=== PATIENT | male | born 1960 | race Caucasian/White ===

== ENCOUNTER 2019-09-17 20:31 | Inpatient (IN) | payer MEDICAID, BC ==
[2019-09-17 21:38] VITALS: BP 122/69
[2019-09-17] MEDS ORDERED: Maalox 30 mL Cup PO PRN (21:38)
[2019-09-17] MEDS ORDERED: Magnesium Hydroxide (MOM) 30 mL UDC PO PRN (21:38)
[2019-09-18] MEDS: Levothyroxine 0.05 Mg Tab PO SCH (07:00)
[2019-09-18] MEDS ORDERED: OLANZapine 5 mg Oral Disintegrating Tab PO SCH (09:00)
[2019-09-18] MEDS: Ferrous Sulfate 325 MG TAB PO SCH (09:07)
--- NOTE | 2019-09-18 12:52 | Psychiatric Evaluation ---
DATE OF SERVICE: 09/18/2019 JUSTIFICATION FOR HOSPITALIZATION: "I can tell you ____ violence." HISTORY OF PRESENT ILLNESS: A 59-year-old male, bizarre, history of likely schizophrenia, intrusive, asking what school I went to, stating that he feels that I, the clinician, ____ violence for some reason, yelling, screaming, does not tell me why he is here, "why do not you just call people and find out why I am here." Agitated, aggressive, starts to escalate, preoccupied, mumbling to self. PAST PSYCHIATRIC HISTORY: Likely hospitalizations, likely schizophrenia. The patient guarded. FAMILY HISTORY: Noncontributory. SOCIAL HISTORY: Born in [place], not , states that he was supposed to have a child, but "she got an ." MEDICATIONS: Reviewed. MENTAL STATUS EXAMINATION: Disheveled, unkempt, poor dentition, loud, aggressive, agitated, talking nonsense, disengaged, mumbling to self. Poor impulse control. Poor insight. DIAGNOSIS: Schizophrenia. MEDICAL: Please see full H and P. ASSESSMENT: A 59-year-old male, currently in the hospital, agitated, aggressive, psychotic appearing. TREATMENT PLAN: Includes group as well as milieu therapy. CONDITIONS FOR DISCHARGE: Improved mood. Improved insight, better control of any aggressive behaviors, violence, homicidal ideations, better control of his psychosis. JOB# [id number]
[2019-09-18] MEDS: Benztropine 1 MG TAB PO SCH (17:06)
[2019-09-18] MEDS: OLANZapine 5 mg Oral Disintegrating Tab PO SCH (17:07)
--- NOTE | 2019-09-18 17:56 | Consultation ---
DATE OF CONSULTATION: 09/18/19 INTERNAL MEDICINE CONSULTATION I am seeing this patient through request of a psychiatrist. HISTORY OF PRESENT ILLNESS: We have a 59-year-old male who was transferred from long term for further treatment and evaluation of agitation and psychosis. No nausea, vomiting, abdominal pain, diarrhea. PAST MEDICAL HISTORY: 1. Hypertension. 2. Schizoaffective disorder. 3. Alcohol liver disease. 4. Dementia. 5. Benign prostatic hypertrophy. At this time, the patient denies any chest pain, shortness of breath, nausea or vomiting. Past medical history is as mentioned above. SURGICAL HISTORY: None. MEDICATIONS: Reviewed. ALLERGIES: None. SOCIAL HISTORY: No tobacco, IV drugs, ETOH negative. PHYSICAL EXAMINATION: VITAL SIGNS: Temperature is 98.0, pulse 79, respirations 20, blood pressure is 126/80. HEENT: Normocephalic, atraumatic head exam. NECK: Supple. CARDIOVASCULAR: Regular rate and rhythm. LUNGS: Decreased breath sounds. ABDOMEN: Soft, nontender. EXTREMITIES: No edema, cyanosis or clubbing. ASSESSMENT AND PLAN: 1. Diabetes. 2. Hypertension. 3. Schizoaffective disorder. PLAN: The patient will be monitored carefully. We will co-manage medically for the diabetes and blood pressure with the psychiatrist. JOB# [id number] KIRIT
[2019-09-18] MEDS: Atorvastatin Calcium 10 MG TAB PO SCH (20:31)
[2019-09-19] MEDS: Levothyroxine 0.05 Mg Tab PO SCH (06:32)
[2019-09-19] MEDS: Benztropine 1 MG TAB PO SCH ×2 (09:15→16:54)
[2019-09-19] MEDS: Ferrous Sulfate 325 MG TAB PO SCH (09:16)
[2019-09-19] MEDS: OLANZapine 5 mg Oral Disintegrating Tab PO SCH ×2 (09:16→16:54)
[2019-09-19] MEDS ORDERED: GLUCAGON HCl 1 MG KIT IM PRN (11:34)
--- NOTE | 2019-09-19 14:29 | Internal Medicine Prog Note ---
Internal Medicine Subjective - Subjective Service Date: 09/19/19 Patient seen and examined:: without staff Patient is:: awake Per staff patient has:: no adverse event, no episodes of fall Internal Medicine Objective - Results Recent Labs: Laboratory Last Values POC Glucose 99 MG/DL (70 - 105) 09/19/19 11:32 - Physical Exam Vitals and I&O: Vital Signs Temp 97.8 F 09/19/19 06:40 Pulse 65 09/19/19 06:40 Resp 20 09/19/19 08:00 BP 116/62 09/19/19 09:14 Pulse Ox 99 09/19/19 06:40 Intake & Output 09/18/19 09/19/19 09/19/19 18:59 06:59 18:59 Intake Total 1320 120 Balance 1320 120 Intake: Oral 960 120 Other 360 Other: # Voids 3 3 # Bowel Movements 0 0 Stool Characteristics Formed Brown Active Medications: Current Medications Acetaminophen (Tylenol) 650 mg PO Q4H PRN PRN Reason: Pain (Mild 1-3) Stop: 11/16/19 22:16 Acetaminophen (Tylenol) 650 mg PO Q4H PRN PRN Reason: Temperature 100F or above Stop: 11/16/19 22:21 Al Hydrox/Mg Hydrox/Simethicone (Maalox) 30 ml PO Q4HR PRN PRN Reason: GI DISTRESS Stop: 11/16/19 21:37 Atorvastatin Calcium (Lipitor) 10 mg PO HS [facility]; Protocol Stop: 11/17/19 20:59 Last Admin: 09/18/19 20:31 Dose: 10 mg Benztropine Mesylate (Cogentin) 2 mg PO BID [facility] Stop: 11/17/19 16:59 Last Admin: 09/19/19 09:15 Dose: 2 mg Citalopram Hydrobromide (Celexa) 40 mg PO DAILY [facility]; Protocol Stop: 11/17/19 11:59 Last Admin: 09/19/19 09:13 Dose: 40 mg Clonazepam (Klonopin) 1 mg PO BID [facility]; Protocol Stop: 11/17/19 11:59 Last Admin: 09/19/19 09:16 Dose: 1 mg Dextrose (Glutose 40%) 18.75 gm PO PRN PRN PRN Reason: BS Below 70 if tolerate po Stop: 11/18/19 11:33 Ferrous Sulfate (Iron) 325 mg PO DAILY [facility] Stop: 11/17/19 08:59 Last Admin: 09/19/19 09:16 Dose: 325 mg Gabapentin (Neurontin) 200 mg PO TID [facility] Stop: 11/17/19 08:59 Last Admin: 09/19/19 14:07 Dose: 200 mg Glucagon (Glucagen) 1 mg IM PRN PRN PRN Reason: BS Below 70 if not tolerate po Stop: 11/18/19 11:33 Hydrochlorothiazide (Hctz) 12.5 mg PO DAILY [facility] Stop: 11/17/19 08:59 Last Admin: 09/19/19 09:14 Dose: 12.5 mg Insulin Human Lispro (Humalog Insulin Sliding Scale) 0 units SUBQ BID@0630, 1630 [facility]; Protocol Stop: 11/18/19 16:29 Levothyroxine Sodium (Synthroid) 0.05 mg PO QDAC [facility] Stop: 11/17/19 07:29 Last Admin: 09/19/19 06:32 Dose: 0.05 mg Lorazepam (Ativan) 0.5 mg PO Q4HR PRN; Protocol PRN Reason: Anxiety Stop: 10/17/19 21:37 Losartan Potassium (Cozaar) 50 mg PO HS [facility] Stop: 11/17/19 20:59 Last Admin: 09/18/19 20:31 Dose: 50 mg Magnesium Hydroxide (Milk Of Magnesia) 30 ml PO HS PRN PRN Reason: Constipation Olanzapine (Zyprexa Zydis) 5 mg PO BID [facility]; Protocol Stop: 11/17/19 16:59 Last Admin: 09/19/19 09:16 Dose: 5 mg Olanzapine (Zyprexa) 10 mg PO HS [facility]; Protocol Stop: 11/18/19 20:59 Oxybutynin Chloride (Ditropan) 5 mg PO BID [facility] Stop: 11/17/19 08:59 Last Admin: 09/19/19 09:15 Dose: 5 mg Tamsulosin HCl (Flomax) 0.4 mg PO HS [facility] Stop: 11/17/19 20:59 Last Admin: 09/18/19 20:31 Dose: 0.4 mg Valproate Sodium (Depakene) 250 mg PO BID [facility]; Protocol Stop: 11/17/19 11:59 Last Admin: 09/19/19 09:13 Dose: 250 mg Zolpidem Tartrate (Ambien) 5 mg PO HS PRN PRN Reason: Insomnia Stop: 11/16/19 21:37 Last Admin: 09/18/19 20:31 Dose: 5 mg HEENT: NC/AT Neck: Supple, No JVD Lungs: CTAB Cardiovascular: RRR, Normal S1, Normal S2 Abdomen: soft, non-tender Extremities: clear Internal Medicine Assmt/Plan - Assessment Assessment: 1. DM/HTN 2. Schizoaffecive disorder - Plan Plan: continue bp meds continue sliding scale for insulin d/w r.n.
[2019-09-19] MEDS: INSULIN LISPRO SLIDING SCALE 100 UNITS/ML UNIT SUBQ SCH (17:00)
--- NOTE | 2019-09-19 19:19 | Progress Notes ---
DATE: 09/19/2019 SUBJECTIVE: A 59-year-old male, currently in the hospital, still bizarre, intrusive, still making statements, "I can tell that you are in for violence," loud, waving a diaper around. Poor orientation, responding to internal stimuli. I spent some time with him, but he escalates, gets loud, still appears psychotic, hyperverbal, aggressive at times. Medications reviewed. Labs reviewed. Vitals were reviewed, currently on dosing of Celexa, Klonopin, and also dosing of Zyprexa, recent increase; blood pressure 127/59, pulse of 67. No overt side effects, no EPS. MENTAL STATUS: Disheveled, unkempt, fair eye contact, loud, intrusive, still making some bizarre comments, responding to internal stimuli. DIAGNOSIS: Schizophrenia. PLAN: We will continue inpatient monitoring. Time spent with the patient trying to assess given how destructive he is, psychotic, disorganized. We will continue dosing of his Zyprexa. JOB# [id number]
[2019-09-19] MEDS: Atorvastatin Calcium 10 MG TAB PO SCH (20:39)
[2019-09-20] MEDS: INSULIN LISPRO SLIDING SCALE 100 UNITS/ML UNIT SUBQ SCH ×2 (06:52→16:49)
[2019-09-20] MEDS: Levothyroxine 0.05 Mg Tab PO SCH (06:53)
[2019-09-20] MEDS: Ferrous Sulfate 325 MG TAB PO SCH (08:47)
[2019-09-20] MEDS: Benztropine 1 MG TAB PO SCH ×2 (08:47→17:07)
[2019-09-20] MEDS: OLANZapine 5 mg Oral Disintegrating Tab PO SCH ×2 (08:48→17:06)
--- NOTE | 2019-09-20 14:31 | Internal Medicine Prog Note ---
Internal Medicine Subjective - Subjective Service Date: 09/20/19 Patient is:: awake Per staff patient has:: no adverse event, no episodes of fall Internal Medicine Objective - Results Recent Labs: Laboratory Last Values POC Glucose 73 MG/DL (70 - 105) 09/20/19 06:27 - Physical Exam Vitals and I&O: Vital Signs Temp 98.2 F 09/20/19 06:27 Pulse 78 09/20/19 06:27 Resp 20 09/20/19 06:27 BP 102/59 09/20/19 08:48 Pulse Ox 96 09/20/19 06:27 Intake & Output 09/19/19 09/20/19 09/20/19 18:59 06:59 18:59 Intake Total 1200 120 Balance 1200 120 Intake: Oral 1200 120 Other: # Voids 3 1 # Bowel Movements 0 0 Stool Characteristics Formed Brown Active Medications: Current Medications Acetaminophen (Tylenol) 650 mg PO Q4H PRN PRN Reason: Pain (Mild 1-3) Stop: 11/16/19 22:16 Acetaminophen (Tylenol) 650 mg PO Q4H PRN PRN Reason: Temperature 100F or above Stop: 11/16/19 22:21 Al Hydrox/Mg Hydrox/Simethicone (Maalox) 30 ml PO Q4HR PRN PRN Reason: GI DISTRESS Stop: 11/16/19 21:37 Atorvastatin Calcium (Lipitor) 10 mg PO HS [facility]; Protocol Stop: 11/17/19 20:59 Last Admin: 09/19/19 20:39 Dose: 10 mg Benztropine Mesylate (Cogentin) 2 mg PO BID [facility] Stop: 11/17/19 16:59 Last Admin: 09/20/19 08:47 Dose: 2 mg Citalopram Hydrobromide (Celexa) 40 mg PO DAILY [facility]; Protocol Stop: 11/17/19 11:59 Last Admin: 09/20/19 08:47 Dose: 40 mg Clonazepam (Klonopin) 1 mg PO BID [facility]; Protocol Stop: 11/17/19 11:59 Last Admin: 09/20/19 08:47 Dose: 1 mg Dextrose (Glutose 40%) 18.75 gm PO PRN PRN PRN Reason: BS Below 70 if tolerate po Stop: 11/18/19 11:33 Ferrous Sulfate (Iron) 325 mg PO DAILY [facility] Stop: 11/17/19 08:59 Last Admin: 09/20/19 08:47 Dose: 325 mg Gabapentin (Neurontin) 200 mg PO TID [facility] Stop: 11/17/19 08:59 Last Admin: 09/20/19 14:05 Dose: Not Given Glucagon (Glucagen) 1 mg IM PRN PRN PRN Reason: BS Below 70 if not tolerate po Stop: 11/18/19 11:33 Hydrochlorothiazide (Hctz) 12.5 mg PO DAILY [facility] Stop: 11/17/19 08:59 Last Admin: 09/20/19 08:48 Dose: Not Given Insulin Human Lispro (Humalog Insulin Sliding Scale) 0 units SUBQ BID@0630, 1630 [facility]; Protocol Stop: 11/18/19 16:29 Last Admin: 09/20/19 06:52 Dose: Not Given Levothyroxine Sodium (Synthroid) 0.05 mg PO QDAC [facility] Stop: 11/17/19 07:29 Last Admin: 09/20/19 06:53 Dose: 0.05 mg Lorazepam (Ativan) 0.5 mg PO Q4HR PRN; Protocol PRN Reason: Anxiety Stop: 10/17/19 21:37 Last Admin: 09/19/19 20:42 Dose: 0.5 mg Losartan Potassium (Cozaar) 50 mg PO HS [facility] Stop: 11/17/19 20:59 Last Admin: 09/19/19 20:40 Dose: 50 mg Magnesium Hydroxide (Milk Of Magnesia) 30 ml PO HS PRN PRN Reason: Constipation Olanzapine (Zyprexa Zydis) 5 mg PO BID [facility]; Protocol Stop: 11/17/19 16:59 Last Admin: 09/20/19 08:48 Dose: 5 mg Olanzapine (Zyprexa) 10 mg PO HS [facility]; Protocol Stop: 11/18/19 20:59 Last Admin: 09/19/19 20:41 Dose: 10 mg Oxybutynin Chloride (Ditropan) 5 mg PO BID [facility] Stop: 11/17/19 08:59 Last Admin: 09/20/19 08:48 Dose: 5 mg Tamsulosin HCl (Flomax) 0.4 mg PO HS [facility] Stop: 11/17/19 20:59 Last Admin: 09/19/19 20:42 Dose: 0.4 mg Valproate Sodium (Depakene) 250 mg PO BID [facility]; Protocol Stop: 11/17/19 11:59 Last Admin: 09/20/19 08:48 Dose: 250 mg Zolpidem Tartrate (Ambien) 5 mg PO HS PRN PRN Reason: Insomnia Stop: 11/16/19 21:37 Last Admin: 09/19/19 20:42 Dose: 5 mg HEENT: NC/AT Neck: Supple, No JVD Lungs: CTAB Cardiovascular: RRR, Normal S1, Normal S2 Abdomen: soft, non-tender Extremities: clear Internal Medicine Assmt/Plan - Assessment Assessment: 1. DM/HTN 2. Schizoaffecive disorder - Plan Plan: continue bp meds continue sliding scale for insulin d/w r.n.
[2019-09-20] MEDS: Atorvastatin Calcium 10 MG TAB PO SCH (21:16)
[2019-09-21] MEDS: INSULIN LISPRO SLIDING SCALE 100 UNITS/ML UNIT SUBQ SCH ×2 (06:32→17:43)
[2019-09-21] MEDS: Levothyroxine 0.05 Mg Tab PO SCH (06:33)
[2019-09-21] MEDS: OLANZapine 5 mg Oral Disintegrating Tab PO SCH ×2 (08:56→17:32)
[2019-09-21] MEDS: Ferrous Sulfate 325 MG TAB PO SCH (08:57)
[2019-09-21] MEDS: Benztropine 1 MG TAB PO SCH ×2 (08:57→17:31)
--- NOTE | 2019-09-21 11:58 | Internal Medicine Prog Note ---
Internal Medicine Subjective - Subjective Service Date: 09/21/19 Patient is:: awake, verbal, interactive, ambulating Per staff patient has:: no adverse event, no episodes of fall Internal Medicine Objective - Results Recent Labs: Laboratory Last Values POC Glucose 71 MG/DL (70 - 105) 09/21/19 05:59 - Physical Exam Vitals and I&O: Vital Signs Temp 97.7 F 09/20/19 20:00 Pulse 79 09/21/19 09:19 Resp 18 09/21/19 09:19 BP 107/63 09/21/19 09:19 Pulse Ox 97 09/21/19 09:19 Intake & Output 09/20/19 09/21/19 09/21/19 18:59 06:59 18:59 Intake Total 800 120 Balance 800 120 Intake: Oral 800 120 Other: # Voids 3 3 # Bowel Movements 1 Stool Characteristics Formed Formed Brown Brown Active Medications: Current Medications Acetaminophen (Tylenol) 650 mg PO Q4H PRN PRN Reason: Pain (Mild 1-3) Stop: 11/16/19 22:16 Acetaminophen (Tylenol) 650 mg PO Q4H PRN PRN Reason: Temperature 100F or above Stop: 11/16/19 22:21 Al Hydrox/Mg Hydrox/Simethicone (Maalox) 30 ml PO Q4HR PRN PRN Reason: GI DISTRESS Stop: 11/16/19 21:37 Atorvastatin Calcium (Lipitor) 10 mg PO HS [facility]; Protocol Stop: 11/17/19 20:59 Last Admin: 09/20/19 21:16 Dose: 10 mg Benztropine Mesylate (Cogentin) 2 mg PO BID [facility] Stop: 11/17/19 16:59 Last Admin: 09/21/19 08:57 Dose: 2 mg Citalopram Hydrobromide (Celexa) 40 mg PO DAILY [facility]; Protocol Stop: 11/17/19 11:59 Last Admin: 09/21/19 08:54 Dose: 40 mg Clonazepam (Klonopin) 1 mg PO BID [facility]; Protocol Stop: 11/17/19 11:59 Last Admin: 09/21/19 08:56 Dose: 1 mg Dextrose (Glutose 40%) 18.75 gm PO PRN PRN PRN Reason: BS Below 70 if tolerate po Stop: 11/18/19 11:33 Ferrous Sulfate (Iron) 325 mg PO DAILY [facility] Stop: 11/17/19 08:59 Last Admin: 09/21/19 08:57 Dose: 325 mg Gabapentin (Neurontin) 200 mg PO TID [facility] Stop: 11/17/19 08:59 Last Admin: 09/21/19 08:56 Dose: 200 mg Glucagon (Glucagen) 1 mg IM PRN PRN PRN Reason: BS Below 70 if not tolerate po Stop: 11/18/19 11:33 Hydrochlorothiazide (Hctz) 12.5 mg PO DAILY [facility] Stop: 11/17/19 08:59 Last Admin: 09/21/19 09:18 Dose: Not Given Insulin Human Lispro (Humalog Insulin Sliding Scale) 0 units SUBQ BID@0630, 1630 [facility]; Protocol Stop: 11/18/19 16:29 Last Admin: 09/21/19 06:32 Dose: Not Given Levothyroxine Sodium (Synthroid) 0.05 mg PO QDAC [facility] Stop: 11/17/19 07:29 Last Admin: 09/21/19 06:33 Dose: 0.05 mg Lorazepam (Ativan) 0.5 mg PO Q4HR PRN; Protocol PRN Reason: Anxiety Stop: 10/17/19 21:37 Last Admin: 09/19/19 20:42 Dose: 0.5 mg Losartan Potassium (Cozaar) 50 mg PO HS [facility] Stop: 11/17/19 20:59 Last Admin: 09/20/19 21:18 Dose: Not Given Magnesium Hydroxide (Milk Of Magnesia) 30 ml PO HS PRN PRN Reason: Constipation Olanzapine (Zyprexa Zydis) 5 mg PO BID [facility]; Protocol Stop: 11/17/19 16:59 Last Admin: 09/21/19 08:56 Dose: 5 mg Olanzapine (Zyprexa) 10 mg PO HS [facility]; Protocol Stop: 11/18/19 20:59 Last Admin: 09/20/19 21:17 Dose: 10 mg Oxybutynin Chloride (Ditropan) 5 mg PO BID [facility] Stop: 11/17/19 08:59 Last Admin: 09/21/19 08:55 Dose: 5 mg Tamsulosin HCl (Flomax) 0.4 mg PO HS [facility] Stop: 11/17/19 20:59 Last Admin: 09/20/19 21:17 Dose: 0.4 mg Valproate Sodium (Depakene) 250 mg PO BID [facility]; Protocol Stop: 11/17/19 11:59 Last Admin: 09/21/19 08:58 Dose: 250 mg Zolpidem Tartrate (Ambien) 5 mg PO HS PRN PRN Reason: Insomnia Stop: 11/16/19 21:37 Last Admin: 09/20/19 21:20 Dose: 5 mg HEENT: NC/AT Neck: Supple, No JVD Lungs: CTAB Cardiovascular: RRR, Normal S1, Normal S2 Abdomen: soft, non-tender Extremities: clear Neurological: no change Internal Medicine Assmt/Plan - Assessment Assessment: 1. DM/HTN 2. Schizoaffecive disorder - Plan Plan: continue bp meds continue sliding scale for insulin d/w r.n.
[2019-09-21] MEDS: Atorvastatin Calcium 10 MG TAB PO SCH (20:51)
[2019-09-22] MEDS: INSULIN LISPRO SLIDING SCALE 100 UNITS/ML UNIT SUBQ SCH ×2 (06:48→16:31)
[2019-09-22] MEDS: Levothyroxine 0.05 Mg Tab PO SCH (06:50)
[2019-09-22] MEDS: OLANZapine 5 mg Oral Disintegrating Tab PO SCH ×2 (09:30→16:51)
[2019-09-22] MEDS: Ferrous Sulfate 325 MG TAB PO SCH (09:32)
[2019-09-22] MEDS: Benztropine 1 MG TAB PO SCH ×2 (09:32→16:59)
[2019-09-22] MEDS: Atorvastatin Calcium 10 MG TAB PO SCH (20:50)
--- NOTE | 2019-09-22 21:03 | Psych Progress Note ---
Psych Progress Note - Intro Date of Progress Note: 09/22/19 - Assessment Assessment: Patient interviewed, case discussed with staff, chart and records were reviewed. The patient is quite irritable with the interview. He is actively responding to internal stimuli. He is uncooperative otherwise with the interview. Per nursing staff reports the patient is isolating to his room easily angered does not want to interact with others. Tolerating medications well no side effects noted. No plan for self-care at this time. - Vitals, I&O Vitals: Vital Signs - 24 hr 09/21/19 09/22/19 09/22/19 21:38 06:39 08:00 Temp 97.3 F HR 80 62 RR 20 20 BP 94/64 117/70 O2 Sat % 97 09/22/19 09/22/19 09/22/19 14:00 20:03 20:51 Temp 96.8 F 97.8 F HR 71 74 74 RR 20 20 BP 103/58 140/74 140/74 O2 Sat % 98 97 - Objective Psych General Appearance: Report: No acute distress Psych Behavior: Report: Alert, Uncooperative Psych Speech: Report: Mumbled Psych Mood: Report: Angry Psych Affect: Report: Constricted Psych Thought Process: Report: Auditory Psych Insight: Report: Impaired Psych Judgement: Report: Impaired - Plan Plan: Continue current treatment plan, continue current medications, continue to monitor behaviors. - Review of Relevant Data Review of Relevant Data: I have reviewed the following items and time felisa (where applicable) has been applied. Psych Data Reviewed: Vitals - Medications Current Medications: Current Medications Acetaminophen (Tylenol) 650 mg PO Q4H PRN PRN Reason: Pain (Mild 1-3) Stop: 11/16/19 22:16 Acetaminophen (Tylenol) 650 mg PO Q4H PRN PRN Reason: Temperature 100F or above Stop: 11/16/19 22:21 Al Hydrox/Mg Hydrox/Simethicone (Maalox) 30 ml PO Q4HR PRN PRN Reason: GI DISTRESS Stop: 11/16/19 21:37 Atorvastatin Calcium (Lipitor) 10 mg PO HS [facility]; Protocol Stop: 11/17/19 20:59 Last Admin: 09/22/19 20:50 Dose: 10 mg Benztropine Mesylate (Cogentin) 2 mg PO BID [facility] Stop: 11/17/19 16:59 Last Admin: 09/22/19 16:59 Dose: 2 mg Citalopram Hydrobromide (Celexa) 40 mg PO DAILY [facility]; Protocol Stop: 11/17/19 11:59 Last Admin: 09/22/19 09:32 Dose: 40 mg Clonazepam (Klonopin) 1 mg PO BID [facility]; Protocol Stop: 11/17/19 11:59 Last Admin: 09/22/19 16:50 Dose: 1 mg Dextrose (Glutose 40%) 18.75 gm PO PRN PRN PRN Reason: BS Below 70 if tolerate po Stop: 11/18/19 11:33 Ferrous Sulfate (Iron) 325 mg PO DAILY [facility] Stop: 11/17/19 08:59 Last Admin: 09/22/19 09:32 Dose: 325 mg Gabapentin (Neurontin) 200 mg PO TID [facility] Stop: 11/17/19 08:59 Last Admin: 09/22/19 20:51 Dose: 200 mg Glucagon (Glucagen) 1 mg IM PRN PRN PRN Reason: BS Below 70 if not tolerate po Stop: 11/18/19 11:33 Hydrochlorothiazide (Hctz) 12.5 mg PO DAILY [facility] Stop: 11/17/19 08:59 Last Admin: 09/22/19 09:31 Dose: 12.5 mg Insulin Human Lispro (Humalog Insulin Sliding Scale) 0 units SUBQ BID@0630, 1630 [facility]; Protocol Stop: 11/18/19 16:29 Last Admin: 09/22/19 16:31 Dose: Not Given Levothyroxine Sodium (Synthroid) 0.05 mg PO QDAC [facility] Stop: 11/17/19 07:29 Last Admin: 09/22/19 06:50 Dose: 0.05 mg Lorazepam (Ativan) 0.5 mg PO Q4HR PRN; Protocol PRN Reason: Anxiety Stop: 10/17/19 21:37 Last Admin: 09/19/19 20:42 Dose: 0.5 mg Losartan Potassium (Cozaar) 50 mg PO HS [facility] Stop: 11/17/19 20:59 Last Admin: 09/22/19 20:51 Dose: 50 mg Magnesium Hydroxide (Milk Of Magnesia) 30 ml PO HS PRN PRN Reason: Constipation Olanzapine (Zyprexa Zydis) 5 mg PO BID [facility]; Protocol Stop: 11/17/19 16:59 Last Admin: 09/22/19 16:51 Dose: 5 mg Olanzapine (Zyprexa) 10 mg PO HS [facility]; Protocol Stop: 11/18/19 20:59 Last Admin: 09/22/19 20:53 Dose: 10 mg Oxybutynin Chloride (Ditropan) 5 mg PO BID [facility] Stop: 11/17/19 08:59 Last Admin: 09/22/19 16:50 Dose: 5 mg Tamsulosin HCl (Flomax) 0.4 mg PO HS [facility] Stop: 11/17/19 20:59 Last Admin: 09/22/19 20:53 Dose: 0.4 mg Valproate Sodium (Depakene) 250 mg PO BID [facility]; Protocol Stop: 11/17/19 11:59 Last Admin: 09/22/19 16:51 Dose: 250 mg Zolpidem Tartrate (Ambien) 5 mg PO HS PRN PRN Reason: Insomnia Stop: 11/16/19 21:37 Last Admin: 09/22/19 20:54 Dose: 5 mg
[2019-09-23] MEDS: Levothyroxine 0.05 Mg Tab PO SCH (06:52)
[2019-09-23] MEDS: INSULIN LISPRO SLIDING SCALE 100 UNITS/ML UNIT SUBQ SCH ×2 (06:52→16:30)
[2019-09-23] MEDS: OLANZapine 5 mg Oral Disintegrating Tab PO SCH ×2 (08:40→16:42)
[2019-09-23] MEDS: Benztropine 1 MG TAB PO SCH ×2 (08:41→16:42)
[2019-09-23] MEDS: Ferrous Sulfate 325 MG TAB PO SCH (08:41)
--- NOTE | 2019-09-23 19:11 | Psych Progress Note ---
Psych Progress Note - Intro Date of Progress Note: 09/23/19 - Assessment Assessment: Patient interviewed, case discussed with staff, chart and records were reviewed. The patient is quite irritable with the interview. He is actively responding to internal stimuli. He is uncooperative otherwise with the interview. Per nursing staff reports the patient is isolating to his room easily angered does not want to interact with others. Tolerating medications well no side effects noted. No plan for self-care at this time. Poorly cooperative with interview. - Vitals, I&O Vitals: Vital Signs - 24 hr 09/22/19 09/22/19 09/22/19 20:00 20:03 20:51 Temp 97.8 F HR 74 74 RR 17 20 BP 140/74 140/74 O2 Sat % 97 09/23/19 09/23/19 09/23/19 06:20 07:38 08:42 Temp 97.3 F HR 65 RR 20 17 BP 95/51 95/51 O2 Sat % 99 09/23/19 14:00 Temp 97.2 F HR 63 RR 20 BP 106/56 O2 Sat % 98 - Objective Psych General Appearance: Report: No acute distress Psych Behavior: Report: Alert, Uncooperative Psych Speech: Report: Mumbled Psych Mood: Report: Angry Psych Affect: Report: Constricted Psych Thought Process: Report: Auditory Psych Insight: Report: Impaired Psych Judgement: Report: Impaired - Plan Plan: Continue current treatment plan, continue current medications, continue to monitor behaviors. - Review of Relevant Data Review of Relevant Data: I have reviewed the following items and time felisa (where applicable) has been applied. - Medications Current Medications: Current Medications Acetaminophen (Tylenol) 650 mg PO Q4H PRN PRN Reason: Pain (Mild 1-3) Stop: 11/16/19 22:16 Acetaminophen (Tylenol) 650 mg PO Q4H PRN PRN Reason: Temperature 100F or above Stop: 11/16/19 22:21 Al Hydrox/Mg Hydrox/Simethicone (Maalox) 30 ml PO Q4HR PRN PRN Reason: GI DISTRESS Stop: 11/16/19 21:37 Atorvastatin Calcium (Lipitor) 10 mg PO HS [facility]; Protocol Stop: 11/17/19 20:59 Last Admin: 09/22/19 20:50 Dose: 10 mg Benztropine Mesylate (Cogentin) 2 mg PO BID [facility] Stop: 11/17/19 16:59 Last Admin: 09/23/19 16:42 Dose: 2 mg Citalopram Hydrobromide (Celexa) 40 mg PO DAILY [facility]; Protocol Stop: 11/17/19 11:59 Last Admin: 09/23/19 08:41 Dose: 40 mg Clonazepam (Klonopin) 1 mg PO BID [facility]; Protocol Stop: 11/17/19 11:59 Last Admin: 09/23/19 16:42 Dose: 1 mg Dextrose (Glutose 40%) 18.75 gm PO PRN PRN PRN Reason: BS Below 70 if tolerate po Stop: 11/18/19 11:33 Ferrous Sulfate (Iron) 325 mg PO DAILY [facility] Stop: 11/17/19 08:59 Last Admin: 09/23/19 08:41 Dose: 325 mg Gabapentin (Neurontin) 200 mg PO TID [facility] Stop: 11/17/19 08:59 Last Admin: 09/23/19 14:00 Dose: 200 mg Glucagon (Glucagen) 1 mg IM PRN PRN PRN Reason: BS Below 70 if not tolerate po Stop: 11/18/19 11:33 Hydrochlorothiazide (Hctz) 12.5 mg PO DAILY [facility] Stop: 11/17/19 08:59 Last Admin: 09/23/19 08:42 Dose: Not Given Insulin Human Lispro (Humalog Insulin Sliding Scale) 0 units SUBQ BID@0630, 1630 [facility]; Protocol Stop: 11/18/19 16:29 Last Admin: 09/23/19 16:30 Dose: Not Given Levothyroxine Sodium (Synthroid) 0.05 mg PO QDAC [facility] Stop: 11/17/19 07:29 Last Admin: 09/23/19 06:52 Dose: 0.05 mg Lorazepam (Ativan) 0.5 mg PO Q4HR PRN; Protocol PRN Reason: Anxiety Stop: 10/17/19 21:37 Last Admin: 09/23/19 14:26 Dose: 0.5 mg Losartan Potassium (Cozaar) 50 mg PO HS [facility] Stop: 11/17/19 20:59 Last Admin: 09/22/19 20:51 Dose: 50 mg Magnesium Hydroxide (Milk Of Magnesia) 30 ml PO HS PRN PRN Reason: Constipation Olanzapine (Zyprexa Zydis) 5 mg PO BID [facility]; Protocol Stop: 11/17/19 16:59 Last Admin: 09/23/19 16:42 Dose: 5 mg Olanzapine (Zyprexa) 10 mg PO HS [facility]; Protocol Stop: 11/18/19 20:59 Last Admin: 09/22/19 20:53 Dose: 10 mg Oxybutynin Chloride (Ditropan) 5 mg PO BID [facility] Stop: 11/17/19 08:59 Last Admin: 09/23/19 16:42 Dose: 5 mg Tamsulosin HCl (Flomax) 0.4 mg PO HS [facility] Stop: 11/17/19 20:59 Last Admin: 09/22/19 20:53 Dose: 0.4 mg Valproate Sodium (Depakene) 250 mg PO BID [facility]; Protocol Stop: 11/17/19 11:59 Last Admin: 09/23/19 16:42 Dose: 250 mg Zolpidem Tartrate (Ambien) 5 mg PO HS PRN PRN Reason: Insomnia Stop: 11/16/19 21:37 Last Admin: 09/22/19 20:54 Dose: 5 mg
[2019-09-23] MEDS: Atorvastatin Calcium 10 MG TAB PO SCH (21:20)
[2019-09-24] MEDS: INSULIN LISPRO SLIDING SCALE 100 UNITS/ML UNIT SUBQ SCH ×2 (06:39→16:30)
[2019-09-24] MEDS: Levothyroxine 0.05 Mg Tab PO SCH (06:39)
[2019-09-24] MEDS: Benztropine 1 MG TAB PO SCH ×2 (08:52→16:39)
[2019-09-24] MEDS: Ferrous Sulfate 325 MG TAB PO SCH (08:52)
[2019-09-24] MEDS: OLANZapine 5 mg Oral Disintegrating Tab PO SCH ×2 (08:54→16:39)
--- NOTE | 2019-09-24 10:35 | Progress Notes ---
DATE: SUBJECTIVE: Chart reviewed and the patient interviewed. Also discussed the patient's condition with the staff and reviewed records and labs. The patient continued to be confused and the patient is still talking to himself and actively responding to stimuli. The patient also gets agitated and irritable easily. The patient also is still suspicious and paranoid. Also, disorganized thoughts and rambling. The patient's vital signs are stable and no new labs available for review. MENTAL STATUS EXAMINATION: Restless. Irritable mood. Unkempt. Thought processes are circumstantial and tangential with flight of ideas. The patient also is preoccupied and easily irritable. ASSESSMENT: The patient is still psychotic and still needs close monitoring. TREATMENT PLAN: Continue to monitor his behavior and his condition closely. Also, continue Zyprexa in a dose of 5 mg twice a day and 10 mg at bedtime and Depakote 250 mg twice a day. Also, we will decrease Celexa to 20 mg every day. Also, continue to work on his behavior. Also, we will get Depakote blood level and we will monitor blood level. ESTIMATED LENGTH OF STAY: 2-3 days. REASON FOR CONTINUED HOSPITAL STAY: The patient still needs adjustment to his medications and to work on his behavior. [facility]# [id number]
--- NOTE | 2019-09-24 11:45 | Internal Medicine Prog Note ---
Internal Medicine Subjective - Subjective Service Date: 09/24/19 Patient is:: awake, verbal, interactive, ambulating Per staff patient has:: no adverse event, no episodes of fall Internal Medicine Objective - Results Recent Labs: Laboratory Last Values POC Glucose 93 MG/DL (70 - 105) 09/24/19 05:41 - Physical Exam Vitals and I&O: Vital Signs Temp 97.3 F 09/24/19 06:09 Pulse 56 09/24/19 06:09 Resp 17 09/24/19 07:59 BP 119/70 09/24/19 08:54 Pulse Ox 98 09/24/19 06:09 Intake & Output 09/23/19 09/24/19 09/24/19 18:59 06:59 18:59 Intake Total 1100 360 Balance 1100 360 Intake: Oral 1100 360 Other: # Voids 2 # Bowel Movements 1 0 Stool Characteristics Formed Formed Formed Brown Brown Brown Active Medications: Current Medications Acetaminophen (Tylenol) 650 mg PO Q4H PRN PRN Reason: Pain (Mild 1-3) Stop: 11/16/19 22:16 Acetaminophen (Tylenol) 650 mg PO Q4H PRN PRN Reason: Temperature 100F or above Stop: 11/16/19 22:21 Al Hydrox/Mg Hydrox/Simethicone (Maalox) 30 ml PO Q4HR PRN PRN Reason: GI DISTRESS Stop: 11/16/19 21:37 Atorvastatin Calcium (Lipitor) 10 mg PO HS [facility]; Protocol Stop: 11/17/19 20:59 Last Admin: 09/23/19 21:20 Dose: 10 mg Benztropine Mesylate (Cogentin) 2 mg PO BID [facility] Stop: 11/17/19 16:59 Last Admin: 09/24/19 08:52 Dose: 2 mg Citalopram Hydrobromide (Celexa) 20 mg PO DAILY [facility]; Protocol Stop: 11/23/19 08:59 Last Admin: 09/24/19 08:52 Dose: 20 mg Clonazepam (Klonopin) 1 mg PO BID [facility]; Protocol Stop: 11/17/19 11:59 Last Admin: 09/24/19 08:53 Dose: 1 mg Dextrose (Glutose 40%) 18.75 gm PO PRN PRN PRN Reason: BS Below 70 if tolerate po Stop: 07/05/20 11:33 Ferrous Sulfate (Iron) 325 mg PO DAILY [facility] Stop: 11/17/19 08:59 Last Admin: 09/24/19 08:52 Dose: 325 mg Gabapentin (Neurontin) 200 mg PO TID [facility] Stop: 11/17/19 08:59 Last Admin: 09/24/19 08:55 Dose: 200 mg Glucagon (Glucagen) 1 mg IM PRN PRN PRN Reason: BS Below 70 if not tolerate po Stop: 11/18/19 11:33 Hydrochlorothiazide (Hctz) 12.5 mg PO DAILY [facility] Stop: 11/17/19 08:59 Last Admin: 09/24/19 08:54 Dose: 12.5 mg Insulin Human Lispro (Humalog Insulin Sliding Scale) 0 units SUBQ BID@0630, 1630 [facility]; Protocol Stop: 11/18/19 16:29 Last Admin: 09/24/19 06:39 Dose: Not Given Levothyroxine Sodium (Synthroid) 0.05 mg PO QDAC [facility] Stop: 11/17/19 07:29 Last Admin: 09/24/19 06:39 Dose: 0.05 mg Lorazepam (Ativan) 0.5 mg PO Q4HR PRN; Protocol PRN Reason: Anxiety Stop: 10/17/19 21:37 Last Admin: 09/23/19 22:29 Dose: 0.5 mg Losartan Potassium (Cozaar) 50 mg PO HS [facility] Stop: 11/17/19 20:59 Last Admin: 09/23/19 21:21 Dose: Not Given Magnesium Hydroxide (Milk Of Magnesia) 30 ml PO HS PRN PRN Reason: Constipation Olanzapine (Zyprexa Zydis) 5 mg PO BID [facility]; Protocol Stop: 11/17/19 16:59 Last Admin: 09/24/19 08:54 Dose: 5 mg Olanzapine (Zyprexa) 10 mg PO HS [facility]; Protocol Stop: 11/18/19 20:59 Last Admin: 09/23/19 21:22 Dose: 10 mg Oxybutynin Chloride (Ditropan) 5 mg PO BID [facility] Stop: 11/17/19 08:59 Last Admin: 09/24/19 08:53 Dose: 5 mg Tamsulosin HCl (Flomax) 0.4 mg PO HS [facility] Stop: 11/17/19 20:59 Last Admin: 09/23/19 21:23 Dose: 0.4 mg Valproate Sodium (Depakene) 250 mg PO BID [facility]; Protocol Stop: 11/17/19 11:59 Last Admin: 09/24/19 08:53 Dose: 250 mg Zolpidem Tartrate (Ambien) 5 mg PO HS PRN PRN Reason: Insomnia Stop: 11/16/19 21:37 Last Admin: 09/23/19 21:24 Dose: 5 mg HEENT: NC/AT Neck: Supple, No JVD Lungs: CTAB Cardiovascular: RRR, Normal S1, Normal S2 Abdomen: soft, non-tender Extremities: clear Neurological: no change Internal Medicine Assmt/Plan - Assessment Assessment: 1. DM/HTN 2. Schizoaffecive disorder - Plan Plan: continue bp meds continue sliding scale for insulin d/w r.n. Nutritional Asmnt/Malnutr-PDOC - Dietary Evaluation Malnutrition Findings (Please click <Entered> for more info): Nutritional Asmnt/Malnutrition Start: 09/21/19 12: 06 Text: Status: Complete Freq: Protocol: Document 09/21/19 12:09 FRANCO (Rec: 09/21/19 12:11 FRANCO LUIS ANTONIO-[email or web address] -[id number]) Nutritional Asmnt/Malnutrition Patient General Information Nutritional Screening Moderate Risk Diagnosis Psychosis Pertinent Medical Hx/Surgical Hx HTN, Schizoaffective Disorder, Alcohol liver disease, Dementia, BPH Subjective Information Pt is a 59-year-old male admitted on 09/16 d/t psychosis and agitation. Pt is eating an estimated 100% of meals Per Meal/Nutrition Activity Record . Dietary is currently providing an estimated 1700 kcals and 90 gm Pro to meet 100% kcal and 100+% Pro needs. Visited pt in morning, pt was laying in bed. Pt stated he is diabetic and does watch the sugar he eats. TP mentioned sometimes when food is unsafe he throws it away, however he has been eating 100% melas here- stated he trusted me because I am a female. Pt stated he prefers to eat in his room by himself but will try to hang out in the community room when he is done , tried to encourage patient to interact with others and walk around. Anthropometrics HT: 510 WT: 223 LB (101 kg) ABW: 180 LB (81.93 kg) BMI: 32.01 (Obese, class I) GI/ Skin Integrity GI: WNL, Soft, Non-tender, Large BM: 09/19 x1 I/O: 920/Not Noted Skin: WNL, dryness Jordan: 19 Diet Order: [facility] Estimated Energy Needs: (Obese , ABW) 1276-2160 kcals (20-25 kcals/ kg) 65-80g Pro (0.8-1.0 g/kg) 4241-9874 ml (20-25 ml/kg) Current Diet Order/ Nutrition Support [facility] Pertinent Medications Maalox (PRN), Lipitor, Glutose 40% (PRN), Ferrous Sulfate, Glucagen (PRN), Hydrochlorothiazide, INS-SS, Synthroid, Cozaar, MOM (PRN), Flomax Pertinent Labs POC Glucose (last 24 hours): 73, 98, 71 Glucose 110, GFR 77, T Protein 6.2, Albumin 3.2, HDL 28 Nutritional Hx/Data Height 1.78 m Height (Calculated Centimeters) 177.8 Current Weight (lbs) 101.151 kg Weight (Calculated Kilograms) 101.2 Weight (Calculated Grams) 592340.1 [place] Body Weight 166 LB (75.45 kg) % [place] Body Weight 134 Body Mass Index (BMI) 32.0 Weight Status Obese GI Symptoms Last BM 09/19 x1 Skin Integrity/Comment: Skin: WNL, dryness Jordan: 19 Current %PO Good (75-100%) Estimated Nutritional Goals BEE in Kcals: Adj wt of IBW Calories/Kcals/Kg 20-25 Kcals Calculated 3099-9227 Protein: Adj wt of IBW Protein g/k.8-1.0 Protein Calculated 65-80 Fluid: ml 1813-2505 ml (20-25 ml/kg) Nutritional Problem 1. Problem Problem Obesity Etiology r/t consistent energy overconsumption Signs/Symptoms: aeb BMI >30 (32.01). Malnutrition Related to Morbid Obesity Malnutrition related to morbid obesity No Intervention/Recommendation Comments Continue [facility] diet as tolerated. Expected Outcomes/Goals Expected Outcomes/Goals 1.PO intake to continue to meet >75% of estimated nutritional needs. 2.Monitor PO intake, wt, nutrition related labs, and skin integrity. 3.Gradual weight loss (0.5-1.0 LB/week) trending toward IBW preferred. 4.F/U as low risk in 7-10 days , 09/27-09/30.
[2019-09-24] MEDS: Atorvastatin Calcium 10 MG TAB PO SCH (20:47)
--- NOTE | 2019-09-25 00:15 | Progress Notes ---
DATE: 09/20/2019 SUBJECTIVE: Case was discussed with staff of the patient, reviewed records. This is a 59-year-old male who was admitted on 09/17/2019. The patient was acting bizarre. The patient with a history of schizophrenia. He was improving, asking inappropriate questions, was acting violent, was yelling and screaming, did not know why he was at this facility. The patient was seen by Dr. Yang upon admission. Diagnosed with schizophrenia. The patient has been on Lexapro 20 mg a day, Klonopin 1 mg twice a day, gabapentin 200 mg 3 times a day, hydrochlorothiazide, insulin, levothyroxine, and olanzapine 10 mg at bedtime and 5 mg twice a day and valproic acid 250 mg twice a day. The patient continues to be acting bizarre. Continues to be a poor historian, responding to internal stimuli. He escalated easily, gets loud, psychotic, unable to make safe plan for self-care. MENTAL STATUS EXAMINATION: The patient is looking disheveled and unkempt, unable to make safe plan for self-care, loud, intrusive, making bizarre statements. ASSESSMENT: The patient continues to be psychotic. PLAN: The patient was restarted on medication recently. We will give him more time. We will continue outpatient group therapy, milieu therapy, adjust medication as needed. JOB# [id number]
--- NOTE | 2019-09-25 01:54 | Progress Notes ---
DATE: 09/21/2019 This is a late note for 09/21/2019. SUBJECTIVE: Case was discussed with staff of the patient records, lab work. The patient continues to be acting bizarre, responding to internal stimuli, uncooperative. The patient is isolating in his room, does not interact much. No side effects with the medication, no sedation, no nausea, no extrapyramidal symptoms.he does not know date ,where he is or why MENTAL STATUS EXAMINATION: The patient continues to be disorganized, looking disheveled, easily agitated, unable to make safe plan for self-care. No side effects with the medication, no sedation, no nausea. We will continue outpatient group therapy, milieu therapy, adjust medication as needed. JOB# [id number] KIRIT
[2019-09-25] MEDS: INSULIN LISPRO SLIDING SCALE 100 UNITS/ML UNIT SUBQ SCH ×2 (06:39→16:38)
[2019-09-25] MEDS: Levothyroxine 0.05 Mg Tab PO SCH (06:39)
[2019-09-25] MEDS: OLANZapine 5 mg Oral Disintegrating Tab PO SCH ×2 (08:40→16:59)
[2019-09-25] MEDS: Benztropine 1 MG TAB PO SCH ×2 (08:40→16:58)
[2019-09-25] MEDS: Ferrous Sulfate 325 MG TAB PO SCH (08:40)
[2019-09-25] MEDS: Atorvastatin Calcium 10 MG TAB PO SCH (20:45)
[2019-09-26] MEDS: INSULIN LISPRO SLIDING SCALE 100 UNITS/ML UNIT SUBQ SCH ×2 (06:37→17:02)
[2019-09-26] MEDS: Levothyroxine 0.05 Mg Tab PO SCH (06:38)
[2019-09-26] MEDS: Benztropine 1 MG TAB PO SCH ×2 (08:50→16:47)
[2019-09-26] MEDS: OLANZapine 5 mg Oral Disintegrating Tab PO SCH ×2 (08:51→16:48)
[2019-09-26] MEDS: Ferrous Sulfate 325 MG TAB PO SCH (08:51)
--- NOTE | 2019-09-26 13:57 | Internal Medicine Prog Note ---
Internal Medicine Subjective - Subjective Service Date: 09/26/19 Patient is:: awake, verbal, interactive, ambulating Per staff patient has:: no adverse event, no episodes of fall Internal Medicine Objective - Results Recent Labs: Laboratory Last Values POC Glucose 92 MG/DL (70 - 105) 09/26/19 06:19 - Physical Exam Vitals and I&O: Vital Signs Temp 98.4 F 09/26/19 06:29 Pulse 62 09/26/19 06:29 Resp 18 09/26/19 08:00 BP 107/56 09/26/19 08:51 Pulse Ox 98 09/26/19 06:29 Intake & Output 09/25/19 09/26/19 09/26/19 18:59 06:59 18:59 Intake Total 120 Balance 120 Intake: Oral 120 Other: # Voids 3 2 # Bowel Movements 1 0 Stool Characteristics Formed Formed Brown Active Medications: Current Medications Acetaminophen (Tylenol) 650 mg PO Q4H PRN PRN Reason: Pain (Mild 1-3) Stop: 11/16/19 22:16 Acetaminophen (Tylenol) 650 mg PO Q4H PRN PRN Reason: Temperature 100F or above Stop: 11/16/19 22:21 Al Hydrox/Mg Hydrox/Simethicone (Maalox) 30 ml PO Q4HR PRN PRN Reason: GI DISTRESS Stop: 11/16/19 21:37 Atorvastatin Calcium (Lipitor) 10 mg PO HS [facility]; Protocol Stop: 11/17/19 20:59 Last Admin: 09/25/19 20:45 Dose: 10 mg Benztropine Mesylate (Cogentin) 2 mg PO BID [facility] Stop: 11/17/19 16:59 Last Admin: 09/26/19 08:50 Dose: 2 mg Citalopram Hydrobromide (Celexa) 20 mg PO DAILY [facility]; Protocol Stop: 11/23/19 08:59 Last Admin: 09/26/19 08:51 Dose: 20 mg Clonazepam (Klonopin) 1 mg PO BID [facility]; Protocol Stop: 11/17/19 11:59 Last Admin: 09/26/19 08:50 Dose: 1 mg Dextrose (Glutose 40%) 18.75 gm PO PRN PRN PRN Reason: BS Below 70 if tolerate po Stop: 11/18/19 11:33 Ferrous Sulfate (Iron) 325 mg PO DAILY [facility] Stop: 11/17/19 08:59 Last Admin: 09/26/19 08:51 Dose: 325 mg Gabapentin (Neurontin) 200 mg PO TID [facility] Stop: 11/17/19 08:59 Last Admin: 09/26/19 08:50 Dose: 200 mg Glucagon (Glucagen) 1 mg IM PRN PRN PRN Reason: BS Below 70 if not tolerate po Stop: 11/18/19 11:33 Hydrochlorothiazide (Hctz) 12.5 mg PO DAILY [facility] Stop: 11/17/19 08:59 Last Admin: 09/26/19 08:51 Dose: 12.5 mg Insulin Human Lispro (Humalog Insulin Sliding Scale) 0 units SUBQ BID@0630, 1630 [facility]; Protocol Stop: 11/18/19 16:29 Last Admin: 09/26/19 06:37 Dose: Not Given Levothyroxine Sodium (Synthroid) 0.05 mg PO QDAC [facility] Stop: 11/17/19 07:29 Last Admin: 09/26/19 06:38 Dose: 0.05 mg Lorazepam (Ativan) 0.5 mg PO Q4HR PRN; Protocol PRN Reason: Anxiety Stop: 10/17/19 21:37 Last Admin: 09/25/19 20:45 Dose: 0.5 mg Losartan Potassium (Cozaar) 50 mg PO HS [facility] Stop: 11/17/19 20:59 Last Admin: 09/25/19 20:45 Dose: 50 mg Magnesium Hydroxide (Milk Of Magnesia) 30 ml PO HS PRN PRN Reason: Constipation Olanzapine (Zyprexa Zydis) 5 mg PO BID [facility]; Protocol Stop: 11/17/19 16:59 Last Admin: 09/26/19 08:51 Dose: 5 mg Olanzapine (Zyprexa) 10 mg PO HS [facility]; Protocol Stop: 11/18/19 20:59 Last Admin: 09/25/19 20:44 Dose: 10 mg Oxybutynin Chloride (Ditropan) 5 mg PO BID [facility] Stop: 11/17/19 08:59 Last Admin: 09/26/19 08:51 Dose: 5 mg Tamsulosin HCl (Flomax) 0.4 mg PO HS [facility] Stop: 11/17/19 20:59 Last Admin: 09/25/19 20:45 Dose: 0.4 mg Valproate Sodium (Depakene) 250 mg PO BID [facility]; Protocol Stop: 11/17/19 11:59 Last Admin: 09/26/19 08:50 Dose: 250 mg Zolpidem Tartrate (Ambien) 5 mg PO HS PRN PRN Reason: Insomnia Stop: 11/16/19 21:37 Last Admin: 09/24/19 21:01 Dose: 5 mg HEENT: NC/AT Neck: Supple, No JVD Lungs: CTAB Cardiovascular: RRR, Normal S1, Normal S2 Abdomen: soft, non-tender Extremities: clear Neurological: no change Internal Medicine Assmt/Plan - Assessment Assessment: 1. DM/HTN 2. Schizoaffecive disorder - Plan Plan: continue bp meds continue sliding scale for insulin d/w r.n. Nutritional Asmnt/Malnutr-PDOC - Dietary Evaluation Malnutrition Findings (Please click <Entered> for more info): Nutritional Asmnt/Malnutrition Start: 09/21/19 12: 06 Text: Status: Complete Freq: Protocol: Document 09/21/19 12:09 FRANCO (Rec: 09/21/19 12:11 FRANCO LUIS ANTONIO-CTXTS -[id number]) Nutritional Asmnt/Malnutrition Patient General Information Nutritional Screening Moderate Risk Diagnosis Psychosis Pertinent Medical Hx/Surgical Hx HTN, Schizoaffective Disorder, Alcohol liver disease, Dementia, BPH Subjective Information Pt is a 59-year-old male admitted on 09/16 d/t psychosis and agitation. Pt is eating an estimated 100% of meals Per Meal/Nutrition Activity Record . Dietary is currently providing an estimated 1700 kcals and 90 gm Pro to meet 100% kcal and 100+% Pro needs. Visited pt in morning, pt was laying in bed. Pt stated he is diabetic and does watch the sugar he eats. TP mentioned sometimes when food is unsafe he throws it away, however he has been eating 100% melas here- stated he trusted me because I am a female. Pt stated he prefers to eat in his room by himself but will try to hang out in the community room when he is done , tried to encourage patient to interact with others and walk around. Anthropometrics HT: 510 WT: 223 LB (101 kg) ABW: 180 LB (81.93 kg) BMI: 32.01 (Obese, class I) GI/ Skin Integrity GI: WNL, Soft, Non-tender, Large BM: 09/19 x1 I/O: 920/Not Noted Skin: WNL, dryness Jordan: 19 Diet Order: [facility] Estimated Energy Needs: (Obese , ABW) 0953-5414 kcals (20-25 kcals/ kg) 65-80g Pro (0.8-1.0 g/kg) 7097-8034 ml (20-25 ml/kg) Current Diet Order/ Nutrition Support [facility] Pertinent Medications Maalox (PRN), Lipitor, Glutose 40% (PRN), Ferrous Sulfate, Glucagen (PRN), Hydrochlorothiazide, INS-SS, Synthroid, Cozaar, MOM (PRN), Flomax Pertinent Labs POC Glucose (last 24 hours): 73, 98, 71 Glucose 110, GFR 77, T Protein 6.2, Albumin 3.2, HDL 28 Nutritional Hx/Data Height 1.78 m Height (Calculated Centimeters) 177.8 Current Weight (lbs) 101.151 kg Weight (Calculated Kilograms) 101.2 Weight (Calculated Grams) 023722.1 [place] Body Weight 166 LB (75.45 kg) % [place] Body Weight 134 Body Mass Index (BMI) 32.0 Weight Status Obese GI Symptoms Last BM 09/19 x1 Skin Integrity/Comment: Skin: WNL, dryness Jordan: 19 Current %PO Good (75-100%) Estimated Nutritional Goals BEE in Kcals: Adj wt of IBW Calories/Kcals/Kg 20-25 Kcals Calculated 6136-8937 Protein: Adj wt of IBW Protein g/k.8-1.0 Protein Calculated 65-80 Fluid: ml 2382-1172 ml (20-25 ml/kg) Nutritional Problem 1. Problem Problem Obesity Etiology r/t consistent energy overconsumption Signs/Symptoms: aeb BMI >30 (32.01). Malnutrition Related to Morbid Obesity Malnutrition related to morbid obesity No Intervention/Recommendation Comments Continue [facility] diet as tolerated. Expected Outcomes/Goals Expected Outcomes/Goals 1.PO intake to continue to meet >75% of estimated nutritional needs. 2.Monitor PO intake, wt, nutrition related labs, and skin integrity. 3.Gradual weight loss (0.5-1.0 LB/week) trending toward IBW preferred. 4.F/U as low risk in 7-10 days , 09/27-09/30.
[2019-09-26] MEDS: Atorvastatin Calcium 10 MG TAB PO SCH (20:35)
[2019-09-27] MEDS: Levothyroxine 0.05 Mg Tab PO SCH (06:36)
[2019-09-27] MEDS: INSULIN LISPRO SLIDING SCALE 100 UNITS/ML UNIT SUBQ SCH ×2 (06:37→16:29)
[2019-09-27] MEDS: OLANZapine 5 mg Oral Disintegrating Tab PO SCH ×2 (08:40→16:45)
[2019-09-27] MEDS: Ferrous Sulfate 325 MG TAB PO SCH (08:40)
[2019-09-27] MEDS: Benztropine 1 MG TAB PO SCH ×2 (08:41→16:46)
[2019-09-27] MEDS: Atorvastatin Calcium 10 MG TAB PO SCH (20:22)
[2019-09-28] MEDS: INSULIN LISPRO SLIDING SCALE 100 UNITS/ML UNIT SUBQ SCH ×2 (06:37→16:51)
[2019-09-28] MEDS: Levothyroxine 0.05 Mg Tab PO SCH (06:40)
[2019-09-28] MEDS: OLANZapine 5 mg Oral Disintegrating Tab PO SCH ×2 (08:22→16:42)
[2019-09-28] MEDS: Benztropine 1 MG TAB PO SCH ×2 (08:22→16:42)
[2019-09-28] MEDS: Ferrous Sulfate 325 MG TAB PO SCH (08:22)
--- NOTE | 2019-09-28 14:52 | Internal Medicine Prog Note ---
Internal Medicine Subjective - Subjective Service Date: 09/28/19 Patient is:: awake, verbal, interactive, ambulating Per staff patient has:: no adverse event, no episodes of fall Internal Medicine Objective - Results Recent Labs: Laboratory Last Values POC Glucose 89 MG/DL (70 - 105) 09/28/19 11:34 - Physical Exam Vitals and I&O: Vital Signs Temp 97.2 F 09/28/19 06:30 Pulse 64 09/28/19 06:30 Resp 18 09/28/19 08:00 BP 100/69 09/28/19 06:30 Pulse Ox 97 09/28/19 06:30 Intake & Output 09/27/19 09/28/19 09/28/19 18:59 06:59 18:59 Intake Total 1200 120 Balance 1200 120 Intake: Oral 1200 120 Other: # Voids 4 2 # Bowel Movements 1 0 Stool Characteristics Formed Formed Brown Brown Active Medications: Current Medications Acetaminophen (Tylenol) 650 mg PO Q4H PRN PRN Reason: Pain (Mild 1-3) Stop: 11/16/19 22:16 Acetaminophen (Tylenol) 650 mg PO Q4H PRN PRN Reason: Temperature 100F or above Stop: 11/16/19 22:21 Al Hydrox/Mg Hydrox/Simethicone (Maalox) 30 ml PO Q4HR PRN PRN Reason: GI DISTRESS Stop: 11/16/19 21:37 Atorvastatin Calcium (Lipitor) 10 mg PO HS [facility]; Protocol Stop: 11/17/19 20:59 Last Admin: 09/27/19 20:22 Dose: 10 mg Benztropine Mesylate (Cogentin) 2 mg PO BID [facility] Stop: 11/17/19 16:59 Last Admin: 09/28/19 08:22 Dose: 2 mg Citalopram Hydrobromide (Celexa) 20 mg PO DAILY [facility]; Protocol Stop: 11/23/19 08:59 Last Admin: 09/28/19 08:22 Dose: 20 mg Clonazepam (Klonopin) 1 mg PO BID [facility]; Protocol Stop: 11/17/19 11:59 Last Admin: 09/28/19 08:22 Dose: 1 mg Dextrose (Glutose 40%) 18.75 gm PO PRN PRN PRN Reason: BS Below 70 if tolerate po Stop: 11/18/19 11:33 Ferrous Sulfate (Iron) 325 mg PO DAILY [facility] Stop: 11/17/19 08:59 Last Admin: 09/28/19 08:22 Dose: 325 mg Gabapentin (Neurontin) 200 mg PO TID [facility] Stop: 11/17/19 08:59 Last Admin: 09/28/19 13:06 Dose: 200 mg Glucagon (Glucagen) 1 mg IM PRN PRN PRN Reason: BS Below 70 if not tolerate po Stop: 11/18/19 11:33 Hydrochlorothiazide (Hctz) 12.5 mg PO DAILY [facility] Stop: 11/17/19 08:59 Last Admin: 09/27/19 08:42 Dose: Not Given Insulin Human Lispro (Humalog Insulin Sliding Scale) 0 units SUBQ BID@0630, 1630 [facility]; Protocol Stop: 11/18/19 16:29 Last Admin: 09/28/19 06:37 Dose: Not Given Levothyroxine Sodium (Synthroid) 0.05 mg PO QDAC [facility] Stop: 11/17/19 07:29 Last Admin: 09/28/19 06:40 Dose: 0.05 mg Lorazepam (Ativan) 0.5 mg PO Q4HR PRN; Protocol PRN Reason: Anxiety Stop: 10/17/19 21:37 Last Admin: 09/25/19 20:45 Dose: 0.5 mg Losartan Potassium (Cozaar) 50 mg PO HS [facility] Stop: 11/17/19 20:59 Last Admin: 09/27/19 20:22 Dose: 50 mg Magnesium Hydroxide (Milk Of Magnesia) 30 ml PO HS PRN PRN Reason: Constipation Olanzapine (Zyprexa Zydis) 5 mg PO BID [facility]; Protocol Stop: 11/17/19 16:59 Last Admin: 09/28/19 08:22 Dose: 5 mg Olanzapine (Zyprexa) 10 mg PO HS [facility]; Protocol Stop: 11/18/19 20:59 Last Admin: 09/27/19 20:22 Dose: 10 mg Oxybutynin Chloride (Ditropan) 5 mg PO BID [facility] Stop: 11/17/19 08:59 Last Admin: 09/28/19 08:22 Dose: 5 mg Tamsulosin HCl (Flomax) 0.4 mg PO HS [facility] Stop: 11/17/19 20:59 Last Admin: 05/14/20 20:23 Dose: 0.4 mg Valproate Sodium (Depakene) 250 mg PO BID [facility]; Protocol Stop: 11/17/19 11:59 Last Admin: 09/28/19 08:21 Dose: 250 mg Zolpidem Tartrate (Ambien) 5 mg PO HS PRN PRN Reason: Insomnia Stop: 11/16/19 21:37 Last Admin: 09/27/19 20:24 Dose: 5 mg HEENT: NC/AT Neck: Supple, No JVD Lungs: CTAB Cardiovascular: RRR, Normal S1, Normal S2 Abdomen: soft, non-tender Extremities: clear Neurological: no change Internal Medicine Assmt/Plan - Assessment Assessment: 1. DM/HTN 2. Schizoaffecive disorder - Plan Plan: continue bp meds continue sliding scale for insulin continue monitoring blood sugars dAilynw chainAilyn Nutritional Asmnt/Malnutr-PDOC - Dietary Evaluation Malnutrition Findings (Please click <Entered> for more info): Nutritional Asmnt/Malnutrition Start: 09/21/19 12: 06 Text: Status: Complete Freq: Protocol: Document 09/21/19 12:09 FRANCO (Rec: 09/21/19 12:11 FRANCO LUIS ANTONIO-[email or web address] -[id number]) Nutritional Asmnt/Malnutrition Patient General Information Nutritional Screening Moderate Risk Diagnosis Psychosis Pertinent Medical Hx/Surgical Hx HTN, Schizoaffective Disorder, Alcohol liver disease, Dementia, BPH Subjective Information Pt is a 59-year-old male admitted on 09/16 d/t psychosis and agitation. Pt is eating an estimated 100% of meals Per Meal/Nutrition Activity Record . Dietary is currently providing an estimated 1700 kcals and 90 gm Pro to meet 100% kcal and 100+% Pro needs. Visited pt in morning, pt was laying in bed. Pt stated he is diabetic and does watch the sugar he eats. TP mentioned sometimes when food is unsafe he throws it away, however he has been eating 100% melas here- stated he trusted me because I am a female. Pt stated he prefers to eat in his room by himself but will try to hang out in the community room when he is done , tried to encourage patient to interact with others and walk around. Anthropometrics HT: 510 WT: 223 LB (101 kg) ABW: 180 LB (81.93 kg) BMI: 32.01 (Obese, class I) GI/ Skin Integrity GI: WNL, Soft, Non-tender, Large BM: 09/19 x1 I/O: 920/Not Noted Skin: WNL, dryness Jordan: 19 Diet Order: [facility] Estimated Energy Needs: (Obese , ABW) 0664-2230 kcals (20-25 kcals/ kg) 65-80g Pro (0.8-1.0 g/kg) 3757-3009 ml (20-25 ml/kg) Current Diet Order/ Nutrition Support [facility] Pertinent Medications Maalox (PRN), Lipitor, Glutose 40% (PRN), Ferrous Sulfate, Glucagen (PRN), Hydrochlorothiazide, INS-SS, Synthroid, Cozaar, MOM (PRN), Flomax Pertinent Labs POC Glucose (last 24 hours): 73, 98, 71 Glucose 110, GFR 77, T Protein 6.2, Albumin 3.2, HDL 28 Nutritional Hx/Data Height 1.78 m Height (Calculated Centimeters) 177.8 Current Weight (lbs) 101.151 kg Weight (Calculated Kilograms) 101.2 Weight (Calculated Grams) 459270.1 [place] Body Weight 166 LB (75.45 kg) % [place] Body Weight 134 Body Mass Index (BMI) 32.0 Weight Status Obese GI Symptoms Last BM 09/19 x1 Skin Integrity/Comment: Skin: WNL, dryness Jordan: 19 Current %PO Good (75-100%) Estimated Nutritional Goals BEE in Kcals: Adj wt of IBW Calories/Kcals/Kg 20-25 Kcals Calculated 3088-2316 Protein: Adj wt of IBW Protein g/k.8-1.0 Protein Calculated 65-80 Fluid: ml 0470-5500 ml (20-25 ml/kg) Nutritional Problem 1. Problem Problem Obesity Etiology r/t consistent energy overconsumption Signs/Symptoms: aeb BMI >30 (32.01). Malnutrition Related to Morbid Obesity Malnutrition related to morbid obesity No Intervention/Recommendation Comments Continue [facility] diet as tolerated. Expected Outcomes/Goals Expected Outcomes/Goals 1.PO intake to continue to meet >75% of estimated nutritional needs. 2.Monitor PO intake, wt, nutrition related labs, and skin integrity. 3.Gradual weight loss (0.5-1.0 LB/week) trending toward IBW preferred. 4.F/U as low risk in 7-10 days , 09/27-09/30.
[2019-09-28] MEDS: Atorvastatin Calcium 10 MG TAB PO SCH (20:30)
[2019-09-29] MEDS: Levothyroxine 0.05 Mg Tab PO SCH (06:34)
[2019-09-29] MEDS: INSULIN LISPRO SLIDING SCALE 100 UNITS/ML UNIT SUBQ SCH ×2 (06:41→17:29)
[2019-09-29] MEDS: OLANZapine 5 mg Oral Disintegrating Tab PO SCH ×2 (08:52→17:28)
[2019-09-29] MEDS: Benztropine 1 MG TAB PO SCH ×2 (08:53→17:29)
[2019-09-29] MEDS: Ferrous Sulfate 325 MG TAB PO SCH (08:55)
--- NOTE | 2019-09-29 16:51 | Progress Notes ---
DATE: 09/29/2019 SUBJECTIVE: A 59-year-old male coming to the hospital, noted to be with ongoing confusion. States he is here because of "homicidal thoughts." Noted to be withdrawn, mostly keeps to self. Staff noting he has been more redirectable, generally calmer, just bouts of confusion, irritability at times. Fair sleep, appetite, does not really want to socialize, wants to keeps to self, still depressed, ongoing mood symptoms. Time spent with the patient, review of staffing notes, chart reviewed. Also discussed with nursing staff given that the patient is not the best historian, is pretty disoriented. Medications reviewed. Labs reviewed. Vitals were reviewed. ASSESSMENT: A 59-year-old male, withdrawn, keeps to self, confused. No overt SI or HI at this time, seems to be mumbling to self, but denies any hallucinations. Impulse control seems somewhat better. PLAN: We will continue to monitor. The patient does seem to be improving, especially since his admission day, generally calmer, more redirectable, still with some bouts of irritability, anger, depression. We will continue to adjust medications. JOB# [id number]
[2019-09-29] MEDS: Atorvastatin Calcium 10 MG TAB PO SCH (20:05)
[2019-09-30] MEDS: INSULIN LISPRO SLIDING SCALE 100 UNITS/ML UNIT SUBQ SCH ×2 (06:39→16:26)
[2019-09-30] MEDS: Levothyroxine 0.05 Mg Tab PO SCH (06:39)
[2019-09-30] MEDS: Ferrous Sulfate 325 MG TAB PO SCH (09:51)
[2019-09-30] MEDS: Benztropine 1 MG TAB PO SCH ×2 (09:51→16:27)
[2019-09-30] MEDS: OLANZapine 5 mg Oral Disintegrating Tab PO SCH ×2 (09:52→16:28)
--- NOTE | 2019-09-30 14:33 | Progress Notes ---
DATE: 09/30/2019 SUBJECTIVE: A 59-year-old male, currently in the hospital, slept fairly well, word processing machine operator awakenings. I go to see him in the dayroom. He is pretty fixated on orange juice, cranberry juice, just rambles on about this and having hard time following his thought processes, not making any sense. He is not really answering most of my questions appropriately. He mumbles to self, having side conversations while standing in front of him. Poor orientation, rambling. Staff noting he has been more redirectable, not particularly agitated. No SI, no HI, preoccupied, anxious. This may be his baseline, calm, just confused and somewhat psychotic, internally preoccupied, but quietly psychotic. Medications reviewed. Labs reviewed. Vitals were reviewed. Blood pressure 120/72, pulse of 72. ASSESSMENT: A 59-year-old male who remains confused, some disorientation, psychotic. PLAN: We will continue to monitor. The patient may benefit from dose increase of medications. I will be increasing his dosing of Zyprexa to 15 mg to target ongoing psychosis, paranoia. The patient is still internally preoccupied, ongoing thought disorder. JOB# [id number]
[2019-09-30] MEDS: Atorvastatin Calcium 10 MG TAB PO SCH (20:10)
[2019-10-01] MEDS: INSULIN LISPRO SLIDING SCALE 100 UNITS/ML UNIT SUBQ SCH (06:33)
[2019-10-01] MEDS: Levothyroxine 0.05 Mg Tab PO SCH (06:34)
[2019-10-01] MEDS: OLANZapine 5 mg Oral Disintegrating Tab PO SCH ×2 (08:04→17:04)
[2019-10-01] MEDS: Ferrous Sulfate 325 MG TAB PO SCH (08:04)
[2019-10-01] MEDS: Benztropine 1 MG TAB PO SCH ×2 (08:05→17:05)
--- NOTE | 2019-10-01 14:53 | Internal Medicine Prog Note ---
Internal Medicine Subjective - Subjective Service Date: 10/01/19 Patient is:: awake, verbal, interactive, ambulating Per staff patient has:: no adverse event, no episodes of fall Internal Medicine Objective - Results Recent Labs: Laboratory Last Values POC Glucose 97 MG/DL (70 - 105) 10/01/19 06:24 - Physical Exam Vitals and I&O: Vital Signs Temp 98.7 F 10/01/19 06:36 Pulse 90 10/01/19 06:36 Resp 18 10/01/19 08:00 BP 139/69 10/01/19 08:03 Pulse Ox 97 10/01/19 06:36 Intake & Output 09/30/19 10/01/19 10/01/19 18:59 06:59 18:59 Intake Total 900 360 Balance 900 360 Intake: Oral 900 360 Other: # Voids 3 1 # Bowel Movements 1 Stool Characteristics Formed Brown Active Medications: Current Medications Acetaminophen (Tylenol) 650 mg PO Q4H PRN PRN Reason: Pain (Mild 1-3) Stop: 11/16/19 22:16 Acetaminophen (Tylenol) 650 mg PO Q4H PRN PRN Reason: Temperature 100F or above Stop: 11/16/19 22:21 Al Hydrox/Mg Hydrox/Simethicone (Maalox) 30 ml PO Q4HR PRN PRN Reason: GI DISTRESS Stop: 11/16/19 21:37 Atorvastatin Calcium (Lipitor) 10 mg PO HS [facility]; Protocol Stop: 11/17/19 20:59 Last Admin: 09/30/19 20:10 Dose: 10 mg Benztropine Mesylate (Cogentin) 2 mg PO BID [facility] Stop: 11/17/19 16:59 Last Admin: 10/01/19 08:05 Dose: 2 mg Citalopram Hydrobromide (Celexa) 20 mg PO DAILY [facility]; Protocol Stop: 11/23/19 08:59 Last Admin: 10/01/19 08:04 Dose: 20 mg Clonazepam (Klonopin) 1 mg PO BID [facility]; Protocol Stop: 11/17/19 11:59 Last Admin: 10/01/19 08:04 Dose: 1 mg Dextrose (Glutose 40%) 18.75 gm PO PRN PRN PRN Reason: BS Below 70 if tolerate po Stop: 11/18/19 11:33 Ferrous Sulfate (Iron) 325 mg PO DAILY [facility] Stop: 11/17/19 08:59 Last Admin: 10/01/19 08:04 Dose: 325 mg Gabapentin (Neurontin) 200 mg PO TID [facility] Stop: 11/17/19 08:59 Last Admin: 10/01/19 14:34 Dose: 200 mg Glucagon (Glucagen) 1 mg IM PRN PRN PRN Reason: BS Below 70 if not tolerate po Stop: 11/18/19 11:33 Hydrochlorothiazide (Hctz) 12.5 mg PO DAILY [facility] Stop: 11/17/19 08:59 Last Admin: 10/01/19 08:03 Dose: 12.5 mg Insulin Human Lispro (Humalog Insulin Sliding Scale) 0 units SUBQ BID@0630, 1630 [facility]; Protocol Stop: 11/18/19 16:29 Last Admin: 10/01/19 06:33 Dose: Not Given Levothyroxine Sodium (Synthroid) 0.05 mg PO QDAC [facility] Stop: 11/17/19 07:29 Last Admin: 10/01/19 06:34 Dose: 0.05 mg Lorazepam (Ativan) 0.5 mg PO Q4HR PRN; Protocol PRN Reason: Anxiety Stop: 10/17/19 21:37 Last Admin: 09/28/19 20:30 Dose: 0.5 mg Losartan Potassium (Cozaar) 50 mg PO [facility] Stop: 11/17/19 20:59 Last Admin: 09/30/19 20:10 Dose: 50 mg Olanzapine (Zyprexa Zydis) 5 mg PO BID [facility]; Protocol Stop: 11/17/19 16:59 Last Admin: 10/01/19 08:04 Dose: 5 mg Olanzapine (Zyprexa) 15 mg PO [facility]; Protocol Stop: 11/29/19 20:59 Last Admin: 09/30/19 20:11 Dose: 15 mg Oxybutynin Chloride (Ditropan) 5 mg PO BID [facility] Stop: 11/17/19 08:59 Last Admin: 10/01/19 08:04 Dose: 5 mg Tamsulosin HCl (Flomax) 0.4 mg PO [facility] Stop: 11/17/19 20:59 Last Admin: 09/30/19 20:11 Dose: 0.4 mg Valproate Sodium (Depakene) 250 mg PO BID [facility]; Protocol Stop: 11/17/19 11:59 Last Admin: 10/01/19 08:03 Dose: 250 mg Zolpidem Tartrate (Ambien) 5 mg PO HS PRN PRN Reason: Insomnia Stop: 11/16/19 21:37 Last Admin: 09/30/19 20:11 Dose: 5 mg General: weak HEENT: NC/AT Neck: Supple, No JVD Lungs: CTAB Cardiovascular: RRR, Normal S1, Normal S2 Abdomen: soft, non-tender Extremities: clear Neurological: no change Internal Medicine Assmt/Plan - Assessment Assessment: 1. DM/HTN 2. Schizoaffecive disorder - Plan Plan: continue bp meds continue sliding scale for insulin continue monitoring blood sugars dAilynw chainAilyn Nutritional Asmnt/Malnutr-PDOC - Dietary Evaluation Malnutrition Findings (Please click <Entered> for more info): Nutritional Asmnt/Malnutrition Start: 09/21/19 12: 06 Text: Status: Complete Freq: Protocol: Document 09/21/19 12:09 FRANCO (Rec: 09/21/19 12:11 FRANCO [email or web address] -[id number]) Nutritional Asmnt/Malnutrition Patient General Information Nutritional Screening Moderate Risk Diagnosis Psychosis Pertinent Medical Hx/Surgical Hx HTN, Schizoaffective Disorder, Alcohol liver disease, Dementia, BPH Subjective Information Pt is a 59-year-old male admitted on 09/16 d/t psychosis and agitation. Pt is eating an estimated 100% of meals Per Meal/Nutrition Activity Record . Dietary is currently providing an estimated 1700 kcals and 90 gm Pro to meet 100% kcal and 100+% Pro needs. Visited pt in morning, pt was laying in bed. Pt stated he is diabetic and does watch the sugar he eats. TP mentioned sometimes when food is unsafe he throws it away, however he has been eating 100% melas here- stated he trusted me because I am a female. Pt stated he prefers to eat in his room by himself but will try to hang out in the community room when he is done , tried to encourage patient to interact with others and walk around. Anthropometrics HT: 510 WT: 223 LB (101 kg) ABW: 180 LB (81.93 kg) BMI: 32.01 (Obese, class I) GI/ Skin Integrity GI: WNL, Soft, Non-tender, Large BM: 5/7 x1 I/O: 920/Not Noted Skin: WNL, dryness Jordan: 19 Diet Order: [facility] Estimated Energy Needs: (Obese , ABW) 8607-5211 kcals (20-25 kcals/ kg) 65-80g Pro (0.8-1.0 g/kg) 8316-2193 ml (20-25 ml/kg) Current Diet Order/ Nutrition Support [facility] Pertinent Medications Maalox (PRN), Lipitor, Glutose 40% (PRN), Ferrous Sulfate, Glucagen (PRN), Hydrochlorothiazide, INS-SS, Synthroid, Cozaar, MOM (PRN), Flomax Pertinent Labs POC Glucose (last 24 hours): 73, 98, 71 Glucose 110, GFR 77, T Protein 6.2, Albumin 3.2, HDL 28 Nutritional Hx/Data Height 1.78 m Height (Calculated Centimeters) 177.8 Current Weight (lbs) 101.151 kg Weight (Calculated Kilograms) 101.2 Weight (Calculated Grams) 569726.1 [place] Body Weight 166 LB (75.45 kg) % [place] Body Weight 134 Body Mass Index (BMI) 32.0 Weight Status Obese GI Symptoms Last BM 09/19 x1 Skin Integrity/Comment: Skin: WNL, dryness Jordan: 19 Current %PO Good (75-100%) Estimated Nutritional Goals BEE in Kcals: Adj wt of IBW Calories/Kcals/Kg 20-25 Kcals Calculated 9620-9518 Protein: Adj wt of IBW Protein g/k.8-1.0 Protein Calculated 65-80 Fluid: ml 9286-1901 ml (20-25 ml/kg) Nutritional Problem 1. Problem Problem Obesity Etiology r/t consistent energy overconsumption Signs/Symptoms: aeb BMI >30 (32.01). Malnutrition Related to Morbid Obesity Malnutrition related to morbid obesity No Intervention/Recommendation Comments Continue [facility] diet as tolerated. Expected Outcomes/Goals Expected Outcomes/Goals 1.PO intake to continue to meet >75% of estimated nutritional needs. 2.Monitor PO intake, wt, nutrition related labs, and skin integrity. 3.Gradual weight loss (0.5-1.0 LB/week) trending toward IBW preferred. 4.F/U as low risk in 7-10 days , 09/27-09/30.
[2019-10-01] MEDS: Atorvastatin Calcium 10 MG TAB PO SCH (20:03)
[2019-10-02] MEDS: INSULIN LISPRO SLIDING SCALE 100 UNITS/ML UNIT SUBQ SCH ×2 (06:41→16:30)
[2019-10-02] MEDS: Levothyroxine 0.05 Mg Tab PO SCH (06:42)
[2019-10-02] MEDS: OLANZapine 5 mg Oral Disintegrating Tab PO SCH ×2 (08:29→16:33)
[2019-10-02] MEDS: Ferrous Sulfate 325 MG TAB PO SCH (08:32)
[2019-10-02] MEDS: Benztropine 1 MG TAB PO SCH ×2 (10:44→16:33)
--- NOTE | 2019-10-02 16:24 | Progress Notes ---
DATE: 10/02/2019 SUBJECTIVE: The patient in the hospital, noted to be in fair spirits. Mood "okay." Amenable to treatment. Staff noting he has been generally calm, cooperative, able to more readily verbalize his needs. No apparent distress. Isolative, withdrawn, wants tablet form rather than liquid form, okay by me. Staff noting still poorly oriented, some confusion, forgetfulness, needing prompting, redirection. Medications were reviewed. Labs reviewed. Vitals were reviewed. Blood pressure 134/64, pulse of 74. ASSESSMENT: A 59-year-old male, seems to be approaching his baseline, generally calm, no agitation. PLAN: We will coordinate care with oncology social work regarding a safe discharge plan and good psychiatric followup. JOB# [id number]
--- NOTE | 2019-10-02 16:26 | Progress Notes ---
DATE: 10/01/2019 SUBJECTIVE: A 59-year-old male, currently in the hospital. Still rambles, some fixation about juices, hard to understand, mumbles to self, ongoing confusion. Current concerns really about his ability to care for his basic needs given his ongoing confusional state. Per criminal justice social worker note, the patient coming from [facility]. Fair sleep and appetite. Staff noting still with some outbursts, irritability, ruminations, still responding to internal stimuli. Medications reviewed. Labs reviewed. Vitals were reviewed. ASSESSMENT: A 59-year-old male with ongoing psychotic symptoms. Some outbursts, irritability. Concerns for his ability to care for his basic needs. He is calmer, some improvement noted. PLAN: We will continue inpatient monitoring. JOB# [id number]
--- NOTE | 2019-10-02 16:47 | Progress Notes ---
DATE: 09/21/2019 SUBJECTIVE: A 59-year-old male, currently in the hospital, remains irritable, still responding to internal stimuli, mumbling to self, easily angered and upset, easily triggered. Staff having hard time controlling his behaviors. Fair sleep and appetite, ongoing disorientation, not really making too much sense on exam. Once again, this is a late dictation for 09/21/2019, slept for about 5-1/2 hours, loud at times, ruminative. Medications were reviewed. Labs were reviewed. Vitals were reviewed. ASSESSMENT: A 59-year-old male who remains aggressive, verbally irritated, loud, ongoing rumination, psychoses. PLAN: We will continue to monitor, titrate and adjust medications. The patient is not safe for a lower level of care. JOB# [id number]
--- NOTE | 2019-10-02 16:47 | Progress Notes ---
DATE: 09/20/2019 SUBJECTIVE: A 59-year-old male, currently in the hospital, still acting strange, bizarre, still talking about violence, odd things, still escalating, getting loud, aggressive at times. Staff noting he needs a lot of prompting, redirection, fair sleep and appetite. Medications were reviewed. Labs were reviewed. Vitals were reviewed. ASSESSMENT: A 59-year-old male, ongoing psychotic symptoms, bizarre ideations. Nursing staff noting still responding to internal stimuli. Fair sleep. PLAN: We will continue inpatient monitoring, ongoing and severe psychotic symptoms remain somewhat impulsive, unpredictable, irritable, not safe for a lower level of care. We will titrate and adjust medications. JOB# [id number]
[2019-10-02] MEDS: Atorvastatin Calcium 10 MG TAB PO SCH (20:07)
--- NOTE | 2019-10-03 00:22 | Progress Notes ---
DATE: 09/25/2019 SUBJECTIVE: A 59-year-old male, currently in the hospital, still noted to be acting strange, bizarre, ruminating, responding to internal stimuli, seems to be talking to self, disorganized. Fair sleep, fair appetite. Nursing staff still noting he needs a lot of prompting, redirection, able to verbalize his needs, orientation. Medications were reviewed. Labs were reviewed. Vitals were reviewed. Seems to be tolerating the medications. ASSESSMENT: A 59-year-old male with ongoing confusional state, psychosis, ongoing concerns about his ability to tend to his basic needs. Given the extent and severity of his current psychotic state, we will continue ____. JOB# [id number]
[2019-10-03] MEDS: INSULIN LISPRO SLIDING SCALE 100 UNITS/ML UNIT SUBQ SCH ×2 (06:32→16:17)
[2019-10-03] MEDS: Levothyroxine 0.05 Mg Tab PO SCH (06:32)
[2019-10-03] MEDS: OLANZapine 5 mg Oral Disintegrating Tab PO SCH ×2 (09:11→16:35)
[2019-10-03] MEDS: Ferrous Sulfate 325 MG TAB PO SCH (09:13)
[2019-10-03] MEDS: Benztropine 1 MG TAB PO SCH ×2 (09:13→16:35)
--- NOTE | 2019-10-03 16:00 | Progress Notes ---
DATE: 10/03/2019 SUBJECTIVE: A 59-year-old male, currently in the hospital, seems to be showing general signs of improvement. Mostly withdrawn, keeps to self, more amenable to speaking with me. No complaints, feels that he is "better." Mostly withdrawn, depressed with no behavioral disturbances, still with some concerns about his mood, withdrawn, sadness, unable to care for his basic needs. We are attempting to confirm a safe disposition. Discussed with nursing staff at length. Nursing notes were reviewed. Medications were reviewed. Labs were reviewed. Vitals were reviewed. Seems to be tolerant of medications thus far. ASSESSMENT AND PLAN: A 59-year-old male, seems to be improving, calmer. We are currently attempting to confirm a safe disposition plan, discussed with social work specialist. JOB# [id number]
[2019-10-03] MEDS: Atorvastatin Calcium 10 MG TAB PO SCH (20:42)
[2019-10-04] MEDS: Levothyroxine 0.05 Mg Tab PO SCH (06:41)
[2019-10-04] MEDS: INSULIN LISPRO SLIDING SCALE 100 UNITS/ML UNIT SUBQ SCH (06:42)
[2019-10-04] MEDS: Benztropine 1 MG TAB PO SCH ×2 (08:43→16:48)
[2019-10-04] MEDS: OLANZapine 5 mg Oral Disintegrating Tab PO SCH ×2 (08:43→16:49)
[2019-10-04] MEDS: Ferrous Sulfate 325 MG TAB PO SCH ×2 (08:44→09:27)
--- NOTE | 2019-10-04 15:10 | Internal Medicine Prog Note ---
Internal Medicine Subjective - Subjective Service Date: 10/04/19 Patient seen and examined:: without staff Patient is:: awake, verbal, interactive, ambulating Per staff patient has:: no adverse event, no episodes of fall Internal Medicine Objective - Results Recent Labs: Laboratory Last Values POC Glucose 96 MG/DL (70 - 105) 10/04/19 06:10 - Physical Exam Vitals and I&O: Vital Signs Temp 97.4 F 10/04/19 14:00 Pulse 79 10/04/19 14:00 Resp 20 10/04/19 14:00 BP 97/53 10/04/19 14:00 Pulse Ox 99 10/04/19 14:00 Intake & Output 10/03/19 10/04/19 10/04/19 18:59 06:59 18:59 Intake Total 120 Balance 120 Intake: Oral 120 Other: # Voids 2 1 # Bowel Movements 0 0 Stool Characteristics Formed Brown Active Medications: Current Medications Acetaminophen (Tylenol) 650 mg PO Q4H PRN PRN Reason: Pain (Mild 1-3) Stop: 11/16/19 22:16 Acetaminophen (Tylenol) 650 mg PO Q4H PRN PRN Reason: Temperature 100F or above Stop: 11/16/19 22:21 Al Hydrox/Mg Hydrox/Simethicone (Maalox) 30 ml PO Q4HR PRN PRN Reason: GI DISTRESS Stop: 11/16/19 21:37 Atorvastatin Calcium (Lipitor) 10 mg PO HS [facility]; Protocol Stop: 11/17/19 20:59 Last Admin: 10/03/19 20:42 Dose: 10 mg Benztropine Mesylate (Cogentin) 2 mg PO BID [facility] Stop: 11/17/19 16:59 Last Admin: 10/04/19 08:43 Dose: 2 mg Citalopram Hydrobromide (Celexa) 20 mg PO DAILY [facility]; Protocol Stop: 11/23/19 08:59 Last Admin: 10/04/19 08:44 Dose: 20 mg Clonazepam (Klonopin) 1 mg PO BID [facility]; Protocol Stop: 11/17/19 11:59 Last Admin: 10/04/19 08:43 Dose: 1 mg Dextrose (Glutose 40%) 18.75 gm PO PRN PRN PRN Reason: BS Below 70 if tolerate po Stop: 11/18/19 11:33 Divalproex Sodium (Depakote Sprinkle) 250 mg PO BID [facility] Stop: 12/03/19 09:59 Last Admin: 10/04/19 09:55 Dose: 250 mg Ferrous Sulfate (Iron) 325 mg PO DAILY [facility] Stop: 11/17/19 08:59 Last Admin: 10/04/19 09:27 Dose: Not Given Gabapentin (Neurontin) 200 mg PO TID [facility] Stop: 11/17/19 08:59 Last Admin: 10/04/19 13:50 Dose: 200 mg Glucagon (Glucagen) 1 mg IM PRN PRN PRN Reason: BS Below 70 if not tolerate po Stop: 11/18/19 11:33 Hydrochlorothiazide (Hctz) 12.5 mg PO DAILY [facility] Stop: 11/17/19 08:59 Last Admin: 10/04/19 08:39 Dose: 12.5 mg Insulin Human Lispro (Humalog Insulin Sliding Scale) 0 units SUBQ BID@0630, 1630 [facility]; Protocol Stop: 11/18/19 16:29 Last Admin: 10/04/19 06:42 Dose: Not Given Levothyroxine Sodium (Synthroid) 0.05 mg PO QDAC [facility] Stop: 11/17/19 07:29 Last Admin: 10/04/19 06:41 Dose: 0.05 mg Lorazepam (Ativan) 0.5 mg PO Q4HR PRN; Protocol PRN Reason: Anxiety Stop: 10/17/19 21:37 Last Admin: 09/28/19 20:30 Dose: 0.5 mg Losartan Potassium (Cozaar) 50 mg PO HS [facility] Stop: 11/17/19 20:59 Last Admin: 10/03/19 21:25 Dose: Not Given Olanzapine (Zyprexa Zydis) 5 mg PO BID [facility]; Protocol Stop: 11/17/19 16:59 Last Admin: 10/04/19 08:43 Dose: 5 mg Olanzapine (Zyprexa) 15 mg PO HS [facility]; Protocol Stop: 11/29/19 20:59 Last Admin: 10/03/19 20:43 Dose: 15 mg Oxybutynin Chloride (Ditropan) 5 mg PO BID [facility] Stop: 11/17/19 08:59 Last Admin: 10/04/19 08:43 Dose: 5 mg Tamsulosin HCl (Flomax) 0.4 mg PO HS [facility] Stop: 11/17/19 20:59 Last Admin: 10/03/19 20:44 Dose: 0.4 mg Zolpidem Tartrate (Ambien) 5 mg PO HS PRN PRN Reason: Insomnia Stop: 11/16/19 21:37 Last Admin: 10/02/19 20:07 Dose: 5 mg General: weak HEENT: NC/AT Neck: Supple, No JVD Lungs: CTAB Cardiovascular: RRR, Normal S1, Normal S2 Abdomen: soft, non-tender Extremities: clear Neurological: no change Internal Medicine Assmt/Plan - Assessment Assessment: 1. DM/HTN 2. Schizoaffecive disorder - Plan Plan: continue bp meds continue sliding scale for insulin continue monitoring blood sugars d.w r.nAilyn Nutritional Asmnt/Malnutr-PDOC - Dietary Evaluation Malnutrition Findings (Please click <Entered> for more info): Nutritional Asmnt/Malnutrition Start: 09/21/19 12: 06 Text: Status: Complete Freq: Protocol: Document 09/21/19 12:09 FRANCO (Rec: 09/21/19 12:11 FRANCO LUIS ANTONIO-CTXTS -[id number]) Nutritional Asmnt/Malnutrition Patient General Information Nutritional Screening Moderate Risk Diagnosis Psychosis Pertinent Medical Hx/Surgical Hx HTN, Schizoaffective Disorder, Alcohol liver disease, Dementia, BPH Subjective Information Pt is a 59-year-old male admitted on 09/16 d/t psychosis and agitation. Pt is eating an estimated 100% of meals Per Meal/Nutrition Activity Record . Dietary is currently providing an estimated 1700 kcals and 90 gm Pro to meet 100% kcal and 100+% Pro needs. Visited pt in morning, pt was laying in bed. Pt stated he is diabetic and does watch the sugar he eats. TP mentioned sometimes when food is unsafe he throws it away, however he has been eating 100% melas here- stated he trusted me because I am a female. Pt stated he prefers to eat in his room by himself but will try to hang out in the community room when he is done , tried to encourage patient to interact with others and walk around. Anthropometrics HT: 510 WT: 223 LB (101 kg) ABW: 180 LB (81.93 kg) BMI: 32.01 (Obese, class I) GI/ Skin Integrity GI: WNL, Soft, Non-tender, Large BM: 09/19 x1 I/O: 920/Not Noted Skin: WNL, dryness Jordan: 19 Diet Order: [facility] Estimated Energy Needs: (Obese , ABW) 8885-5481 kcals (20-25 kcals/ kg) 65-80g Pro (0.8-1.0 g/kg) 1565-7526 ml (20-25 ml/kg) Current Diet Order/ Nutrition Support [facility] Pertinent Medications Maalox (PRN), Lipitor, Glutose 40% (PRN), Ferrous Sulfate, Glucagen (PRN), Hydrochlorothiazide, INS-SS, Synthroid, Cozaar, MOM (PRN), Flomax Pertinent Labs POC Glucose (last 24 hours): 73, 98, 71 Glucose 110, GFR 77, T Protein 6.2, Albumin 3.2, HDL 28 Nutritional Hx/Data Height 1.78 m Height (Calculated Centimeters) 177.8 Current Weight (lbs) 101.151 kg Weight (Calculated Kilograms) 101.2 Weight (Calculated Grams) 935629.1 [place] Body Weight 166 LB (75.45 kg) % [place] Body Weight 134 Body Mass Index (BMI) 32.0 Weight Status Obese GI Symptoms Last BM 09/19 x1 Skin Integrity/Comment: Skin: WNL, dryness Jordan: 19 Current %PO Good (75-100%) Estimated Nutritional Goals BEE in Kcals: Adj wt of IBW Calories/Kcals/Kg 20-25 Kcals Calculated 7117-9950 Protein: Adj wt of IBW Protein g/k.8-1.0 Protein Calculated 65-80 Fluid: ml 1328-4852 ml (20-25 ml/kg) Nutritional Problem 1. Problem Problem Obesity Etiology r/t consistent energy overconsumption Signs/Symptoms: aeb BMI >30 (32.01). Malnutrition Related to Morbid Obesity Malnutrition related to morbid obesity No Intervention/Recommendation Comments Continue [facility] diet as tolerated. Expected Outcomes/Goals Expected Outcomes/Goals 1.PO intake to continue to meet >75% of estimated nutritional needs. 2.Monitor PO intake, wt, nutrition related labs, and skin integrity. 3.Gradual weight loss (0.5-1.0 LB/week) trending toward IBW preferred. 4.F/U as low risk in 7-10 days , 09/27-09/30.
--- NOTE | 2019-10-04 17:06 | Progress Notes ---
DATE: 10/04/2019 SUBJECTIVE: The patient in the hospital, still rambling, preoccupied, talking to self, ongoing concerns about his ability to really attend to his basic needs. Ongoing disorientation and still with ongoing psychotic symptoms. He may be approaching his baseline and there are clear concerns about his ability to really fend for himself. We are trying to get him to a more structured setting, but due to COVID-19 we are having some challenges. Preoccupied with own thoughts, impulsive, unpredictable, sometimes unruly, staff noting that sometimes he gets agitated and they have to redirect him. Recent dose increases of medications. Currently on Zyprexa 5 mg twice a day, 15 at night, Depakote as well. Medications were reviewed. Labs reviewed. Vitals were reviewed. Blood pressure 106/60, pulse of 63. ASSESSMENT: A 59-year-old male, still remains unruly, ongoing psychosis, concerns for his ability to fend for himself, his basic needs. Discussed with nurses at length, social media sr strategy manager, will continue inpatient monitoring. Consider dose titration of Zyprexa. JOB# [id number]
[2019-10-04] MEDS: Atorvastatin Calcium 10 MG TAB PO SCH (20:35)
[2019-10-05] MEDS: INSULIN LISPRO SLIDING SCALE 100 UNITS/ML UNIT SUBQ SCH ×2 (06:36→17:26)
[2019-10-05] MEDS: Levothyroxine 0.05 Mg Tab PO SCH (06:37)
[2019-10-05] MEDS: Benztropine 1 MG TAB PO SCH ×2 (08:15→16:22)
[2019-10-05] MEDS: OLANZapine 5 mg Oral Disintegrating Tab PO SCH ×2 (08:21→16:22)
--- NOTE | 2019-10-05 13:48 | Internal Medicine Prog Note ---
Internal Medicine Subjective - Subjective Service Date: 10/05/19 (patient was accidentally given cogentin and prednisone) Patient seen and examined:: with staff Patient is:: awake, verbal, interactive, ambulating Per staff patient has:: no adverse event, no episodes of fall Internal Medicine Objective - Results Recent Labs: Laboratory Last Values POC Glucose 89 MG/DL (70 - 105) 10/05/19 11:10 - Physical Exam Vitals and I&O: Vital Signs Temp 97.2 F 10/05/19 06:36 Pulse 68 10/05/19 06:36 Resp 20 10/05/19 06:36 BP 102/71 10/05/19 08:23 Pulse Ox 98 10/05/19 06:36 Intake & Output 10/04/19 10/05/19 10/05/19 18:59 06:59 18:59 Intake Total 900 120 Balance 900 120 Intake: Oral 900 120 Other: # Voids 3 1 # Bowel Movements 1 0 Active Medications: Current Medications Acetaminophen (Tylenol) 650 mg PO Q4H PRN PRN Reason: Pain (Mild 1-3) Stop: 11/16/19 22:16 Acetaminophen (Tylenol) 650 mg PO Q4H PRN PRN Reason: Temperature 100F or above Stop: 11/16/19 22:21 Al Hydrox/Mg Hydrox/Simethicone (Maalox) 30 ml PO Q4HR PRN PRN Reason: GI DISTRESS Stop: 11/16/19 21:37 Atorvastatin Calcium (Lipitor) 10 mg PO HS [facility]; Protocol Stop: 11/17/19 20:59 Last Admin: 10/04/19 20:35 Dose: 10 mg Benztropine Mesylate (Cogentin) 2 mg PO BID [facility] Stop: 11/17/19 16:59 Last Admin: 10/05/19 08:15 Dose: 2 mg Citalopram Hydrobromide (Celexa) 20 mg PO DAILY [facility]; Protocol Stop: 11/23/19 08:59 Last Admin: 10/05/19 08:21 Dose: 20 mg Clonazepam (Klonopin) 1 mg PO BID [facility]; Protocol Stop: 11/17/19 11:59 Last Admin: 10/05/19 08:21 Dose: 1 mg Dextrose (Glutose 40%) 18.75 gm PO PRN PRN PRN Reason: BS Below 70 if tolerate po Stop: 11/18/19 11:33 Divalproex Sodium (Depakote Sprinkle) 250 mg PO BID [facility] Stop: 12/03/19 09:59 Last Admin: 10/05/19 08:18 Dose: 250 mg Ferrous Sulfate (Iron) 325 mg PO DAILY [facility] Stop: 11/17/19 08:59 Last Admin: 10/04/19 09:27 Dose: Not Given Gabapentin (Neurontin) 200 mg PO TID [facility] Stop: 11/17/19 08:59 Last Admin: 10/05/19 08:20 Dose: 200 mg Glucagon (Glucagen) 1 mg IM PRN PRN PRN Reason: BS Below 70 if not tolerate po Stop: 11/18/19 11:33 Hydrochlorothiazide (Hctz) 12.5 mg PO DAILY [facility] Stop: 11/17/19 08:59 Last Admin: 10/05/19 08:23 Dose: 12.5 mg Insulin Human Lispro (Humalog Insulin Sliding Scale) 0 units SUBQ BID@0630, 1630 [facility]; Protocol Stop: 11/18/19 16:29 Last Admin: 10/05/19 06:36 Dose: Not Given Levothyroxine Sodium (Synthroid) 0.05 mg PO QDAC [facility] Stop: 11/17/19 07:29 Last Admin: 10/05/19 06:37 Dose: 0.05 mg Lorazepam (Ativan) 0.5 mg PO Q4HR PRN; Protocol PRN Reason: Anxiety Stop: 10/17/19 21:37 Last Admin: 09/28/19 20:30 Dose: 0.5 mg Losartan Potassium (Cozaar) 50 mg PO HS [facility] Stop: 11/17/19 20:59 Last Admin: 10/04/19 20:38 Dose: 50 mg Olanzapine (Zyprexa Zydis) 5 mg PO BID [facility]; Protocol Stop: 11/17/19 16:59 Last Admin: 10/05/19 08:21 Dose: 5 mg Olanzapine (Zyprexa) 15 mg PO HS [facility]; Protocol Stop: 11/29/19 20:59 Last Admin: 10/04/19 20:39 Dose: 15 mg Oxybutynin Chloride (Ditropan) 5 mg PO BID [facility] Stop: 11/17/19 08:59 Last Admin: 10/05/19 08:21 Dose: 5 mg Tamsulosin HCl (Flomax) 0.4 mg PO HS [facility] Stop: 11/17/19 20:59 Last Admin: 10/04/19 20:40 Dose: 0.4 mg Zolpidem Tartrate (Ambien) 5 mg PO HS PRN PRN Reason: Insomnia Stop: 11/16/19 21:37 Last Admin: 10/04/19 20:40 Dose: 5 mg General: weak HEENT: NC/AT Neck: Supple, No JVD Lungs: CTAB Cardiovascular: RRR, Normal S1, Normal S2 Abdomen: soft, non-tender Extremities: clear Neurological: no change Internal Medicine Assmt/Plan - Assessment Assessment: 1. DM/HTN 2. Schizoaffecive disorder - Plan Plan: will monitor for side effects of cogentin and prednison continue BP meds continue sliding scale. d/w r.n. Nutritional Asmnt/Malnutr-PDOC - Dietary Evaluation Malnutrition Findings (Please click <Entered> for more info): Nutritional Asmnt/Malnutrition Start: 09/21/19 12: 06 Text: Status: Complete Freq: Protocol: Document 09/21/19 12:09 FRANCO (Rec: 09/21/19 12:11 FRANCO LUIS ANTONIO-CTXTS -02) Nutritional Asmnt/Malnutrition Patient General Information Nutritional Screening Moderate Risk Diagnosis Psychosis Pertinent Medical Hx/Surgical Hx HTN, Schizoaffective Disorder, Alcohol liver disease, Dementia, BPH Subjective Information Pt is a 59-year-old male admitted on 09/16 d/t psychosis and agitation. Pt is eating an estimated 100% of meals Per Meal/Nutrition Activity Record . Dietary is currently providing an estimated 1700 kcals and 90 gm Pro to meet 100% kcal and 100+% Pro needs. Visited pt in morning, pt was laying in bed. Pt stated he is diabetic and does watch the sugar he eats. TP mentioned sometimes when food is unsafe he throws it away, however he has been eating 100% melas here- stated he trusted me because I am a female. Pt stated he prefers to eat in his room by himself but will try to hang out in the community room when he is done , tried to encourage patient to interact with others and walk around. Anthropometrics HT: 510 WT: 223 LB (101 kg) ABW: 180 LB (81.93 kg) BMI: 32.01 (Obese, class I) GI/ Skin Integrity GI: WNL, Soft, Non-tender, Large BM: 09/19 x1 I/O: 920/Not Noted Skin: WNL, dryness Jordan: 19 Diet Order: [facility] Estimated Energy Needs: (Obese , ABW) 2925-5601 kcals (20-25 kcals/ kg) 65-80g Pro (0.8-1.0 g/kg) 9847-5802 ml (20-25 ml/kg) Current Diet Order/ Nutrition Support [facility] Pertinent Medications Maalox (PRN), Lipitor, Glutose 40% (PRN), Ferrous Sulfate, Glucagen (PRN), Hydrochlorothiazide, INS-SS, Synthroid, Cozaar, MOM (PRN), Flomax Pertinent Labs POC Glucose (last 24 hours): 73, 98, 71 Glucose 110, GFR 77, T Protein 6.2, Albumin 3.2, HDL 28 Nutritional Hx/Data Height 1.78 m Height (Calculated Centimeters) 177.8 Current Weight (lbs) 101.151 kg Weight (Calculated Kilograms) 101.2 Weight (Calculated Grams) 886039.1 [place] Body Weight 166 LB (75.45 kg) % [place] Body Weight 134 Body Mass Index (BMI) 32.0 Weight Status Obese GI Symptoms Last BM 09/19 x1 Skin Integrity/Comment: Skin: WNL, dryness Jordan: 19 Current %PO Good (75-100%) Estimated Nutritional Goals BEE in Kcals: Adj wt of IBW Calories/Kcals/Kg 20-25 Kcals Calculated 0609-0110 Protein: Adj wt of IBW Protein g/k.8-1.0 Protein Calculated 65-80 Fluid: ml 6904-2331 ml (20-25 ml/kg) Nutritional Problem 1. Problem Problem Obesity Etiology r/t consistent energy overconsumption Signs/Symptoms: aeb BMI >30 (32.01). Malnutrition Related to Morbid Obesity Malnutrition related to morbid obesity No Intervention/Recommendation Comments Continue [facility] diet as tolerated. Expected Outcomes/Goals Expected Outcomes/Goals 1.PO intake to continue to meet >75% of estimated nutritional needs. 2.Monitor PO intake, wt, nutrition related labs, and skin integrity. 3.Gradual weight loss (0.5-1.0 LB/week) trending toward IBW preferred. 4.F/U as low risk in 7-10 days , 09/27-09/30.
[2019-10-05] MEDS: Ferrous Sulfate 325 MG TAB PO SCH (15:09)
[2019-10-05] MEDS: Atorvastatin Calcium 10 MG TAB PO SCH (20:29)
[2019-10-06] MEDS: Levothyroxine 0.05 Mg Tab PO SCH (06:43)
[2019-10-06] MEDS: Ferrous Sulfate 325 MG TAB PO SCH (08:26)
[2019-10-06] MEDS: OLANZapine 5 mg Oral Disintegrating Tab PO SCH ×2 (08:26→16:33)
[2019-10-06] MEDS: Benztropine 1 MG TAB PO SCH ×2 (08:26→16:33)
[2019-10-06] MEDS: Atorvastatin Calcium 10 MG TAB PO SCH (21:08)
--- NOTE | 2019-10-06 23:36 | Progress Notes ---
DATE: 10/06/2019 IDENTIFYING DATA: A 59-year-old male who was initially brought in here with history of schizophrenia for screaming, violent behavior and psychosis. Medication reconciliation reviewed, currently on Cogentin, Celexa, clonazepam, Depakote, Zydis Zyprexa. Nursing staff reporting the patient has been slightly more cooperative with the adjustments of medications as early as yesterday and according to a primary psychiatrist that he continues to have ongoing psychosis, also approaching baseline. At this time and today on [id number] evaluation, the patient points that he currently awaiting COVID-19, so he can go home. He at times noted to be preoccupied. MENTAL STATUS EXAMINATION: He needed redirection. Recent titration of Zyprexa continues to be tolerated. We will continue monitoring and evaluating recent adjustments of the Zyprexa at 25 mg a day. [facility]# [id number]
[2019-10-07] MEDS: Levothyroxine 0.05 Mg Tab PO SCH (06:35)
[2019-10-07] MEDS: Benztropine 1 MG TAB PO SCH ×2 (09:02→16:16)
[2019-10-07] MEDS: OLANZapine 5 mg Oral Disintegrating Tab PO SCH ×2 (09:02→16:15)
[2019-10-07] MEDS: Ferrous Sulfate 325 MG TAB PO SCH (09:04)
[2019-10-07] MEDS: Atorvastatin Calcium 10 MG TAB PO SCH (20:15)
--- NOTE | 2019-10-07 21:21 | Progress Notes ---
DATE: 10/07/2019 SUBJECTIVE: Today on [id number] evaluation, the patient continues to report he needs COVID-19 testing. Today on [id number] evaluation, observed to be internally preoccupied and impulsive, although needing some redirection. Currently Zyprexa has been increased to 25 mg a day. Nursing staff reported that mostly has been isolative, disengaged. ASSESSMENT AND PLAN: The patient is a 59-year-old schizoaffective disorder, tolerating the Zyprexa at 25 mg with the recent titration. ____ disposition has been challenging secondary to COVID-19 and the bed availability. JOB# [id number]
[2019-10-08] MEDS: Levothyroxine 0.05 Mg Tab PO SCH (06:36)
--- NOTE | 2019-10-08 07:46 | Progress Notes ---
DATE: 10/08/2019 SUBJECTIVE: The patient was seen and evaluated where the patient's chart was reviewed. Covering for Dr. Yang. Nursing staff reporting that the patient is more redirectable. Today on [id number] evaluation, the patient reports he missed his family. He is more redirectable, no complications or oversedation with the Zyprexa, which was increased over the weekend to 25 mg a day. MENTAL STATUS EXAMINATION: Although slightly withdrawn and disengaged, more redirectable. ASSESSMENT AND PLAN: Schizoaffective disorder, stabilizing with the Zyprexa. We will continue monitoring and evaluating and continue working with medical team and medical scheduler for safe disposition when further psychiatrically stabilized. JOB# [id number]
[2019-10-08] MEDS: Benztropine 1 MG TAB PO SCH ×2 (08:31→16:23)
[2019-10-08] MEDS: Ferrous Sulfate 325 MG TAB PO SCH (08:31)
[2019-10-08] MEDS: OLANZapine 5 mg Oral Disintegrating Tab PO SCH ×2 (08:32→16:24)
[2019-10-08] MEDS: Atorvastatin Calcium 10 MG TAB PO SCH (21:09)
[2019-10-09] MEDS: Levothyroxine 0.05 Mg Tab PO SCH (06:47)
[2019-10-09] MEDS: OLANZapine 5 mg Oral Disintegrating Tab PO SCH ×2 (08:49→16:18)
[2019-10-09] MEDS: Ferrous Sulfate 325 MG TAB PO SCH (08:50)
[2019-10-09] MEDS: Benztropine 1 MG TAB PO SCH ×2 (08:50→16:18)
--- NOTE | 2019-10-09 14:33 | Internal Medicine Prog Note ---
Internal Medicine Subjective - Subjective Service Date: 10/09/19 Patient seen and examined:: without staff Patient is:: awake, verbal, interactive, ambulating Per staff patient has:: no adverse event, no episodes of fall Internal Medicine Objective - Results Recent Labs: Laboratory Last Values POC Glucose 83 MG/DL (70 - 105) 10/07/19 06:26 - Physical Exam Vitals and I&O: Vital Signs Temp 98.2 F 10/09/19 05:47 Pulse 58 10/09/19 05:47 Resp 18 10/09/19 07:58 BP 106/61 10/09/19 08:48 Pulse Ox 96 10/09/19 05:47 Intake & Output 10/08/19 10/09/19 10/09/19 18:59 06:59 18:59 Intake Total 1200 240 Balance 1200 240 Intake: Oral 1200 240 Other: # Voids 3 2 # Bowel Movements 0 Active Medications: Current Medications Acetaminophen (Tylenol) 650 mg PO Q4H PRN PRN Reason: Pain (Mild 1-3) Stop: 11/16/19 22:16 Acetaminophen (Tylenol) 650 mg PO Q4H PRN PRN Reason: Temperature 100F or above Stop: 11/16/19 22:21 Al Hydrox/Mg Hydrox/Simethicone (Maalox) 30 ml PO Q4HR PRN PRN Reason: GI DISTRESS Stop: 11/16/19 21:37 Atorvastatin Calcium (Lipitor) 10 mg PO HS [facility]; Protocol Stop: 11/17/19 20:59 Last Admin: 10/08/19 21:09 Dose: 10 mg Benztropine Mesylate (Cogentin) 2 mg PO BID [facility]ICIA Stop: 11/17/19 16:59 Last Admin: 10/09/19 08:50 Dose: 2 mg Citalopram Hydrobromide (Celexa) 20 mg PO DAILY [facility]; Protocol Stop: 11/23/19 08:59 Last Admin: 10/09/19 08:49 Dose: 20 mg Clonazepam (Klonopin) 1 mg PO BID [facility]; Protocol Stop: 11/17/19 11:59 Last Admin: 10/09/19 08:48 Dose: 1 mg Dextrose (Glutose 40%) 18.75 gm PO PRN PRN PRN Reason: BS Below 70 if tolerate po Stop: 11/18/19 11:33 Divalproex Sodium (Depakote Sprinkle) 250 mg PO BID ALICIA Stop: 12/03/19 09:59 Last Admin: 10/09/19 08:49 Dose: 250 mg Ferrous Sulfate (Iron) 325 mg PO DAILY [facility] Stop: 11/17/19 08:59 Last Admin: 10/09/19 08:50 Dose: 325 mg Gabapentin (Neurontin) 200 mg PO TID [facility]ICIA Stop: 11/17/19 08:59 Last Admin: 10/09/19 08:48 Dose: 200 mg Glucagon (Glucagen) 1 mg IM PRN PRN PRN Reason: BS Below 70 if not tolerate po Stop: 11/18/19 11:33 Hydrochlorothiazide (Hctz) 12.5 mg PO DAILY [facility]ICIA Stop: 11/17/19 08:59 Last Admin: 10/09/19 08:48 Dose: 12.5 mg Levothyroxine Sodium (Synthroid) 0.05 mg PO QDAC ALICIA Stop: 11/17/19 07:29 Last Admin: 10/09/19 06:47 Dose: 0.05 mg Lorazepam (Ativan) 0.5 mg PO Q4HR PRN; Protocol PRN Reason: Anxiety Stop: 10/17/19 21:37 Last Admin: 09/28/19 20:30 Dose: 0.5 mg Losartan Potassium (Cozaar) 50 mg PO HS [facility] Stop: 11/17/19 20:59 Last Admin: 10/08/19 21:09 Dose: 50 mg Olanzapine (Zyprexa Zydis) 5 mg PO BID [facility]; Protocol Stop: 11/17/19 16:59 Last Admin: 10/09/19 08:49 Dose: 5 mg Olanzapine (Zyprexa) 15 mg PO HS [facility]; Protocol Stop: 11/29/19 20:59 Last Admin: 10/08/19 21:10 Dose: 15 mg Oxybutynin Chloride (Ditropan) 5 mg PO BID ALICIA Stop: 11/17/19 08:59 Last Admin: 10/09/19 08:48 Dose: 5 mg Tamsulosin HCl (Flomax) 0.4 mg PO HS ALICIA Stop: 11/17/19 20:59 Last Admin: 10/08/19 21:07 Dose: 0.4 mg Zolpidem Tartrate (Ambien) 5 mg PO HS PRN PRN Reason: Insomnia Stop: 11/16/19 21:37 Last Admin: 10/08/19 21:09 Dose: 5 mg General: weak HEENT: NC/AT Neck: Supple, No JVD Lungs: CTAB Cardiovascular: RRR, Normal S1, Normal S2 Abdomen: soft, non-tender Extremities: clear Neurological: no change Internal Medicine Assmt/Plan - Assessment Assessment: 1. DM/HTN 2. Schizoaffecive disorder - Plan Plan: no side effects clinically seen continue BP meds continue sliding scale. check labs d/w r.n. Nutritional Asmnt/Malnutr-PDOC - Dietary Evaluation Malnutrition Findings (Please click <Entered> for more info): Nutritional Asmnt/Malnutrition Start: 09/21/19 12: 06 Text: Status: Complete Freq: Protocol: Document 09/21/19 12:09 FRANCO (Rec: 09/21/19 12:11 FRANCO LUIS [id number]) Nutritional Asmnt/Malnutrition Patient General Information Nutritional Screening Moderate Risk Diagnosis Psychosis Pertinent Medical Hx/Surgical Hx HTN, Schizoaffective Disorder, Alcohol liver disease, Dementia, BPH Subjective Information Pt is a 59-year-old male admitted on 09/16 d/t psychosis and agitation. Pt is eating an estimated 100% of meals Per Meal/Nutrition Activity Record . Dietary is currently providing an estimated 1700 kcals and 90 gm Pro to meet 100% kcal and 100+% Pro needs. Visited pt in morning, pt was laying in bed. Pt stated he is diabetic and does watch the sugar he eats. TP mentioned sometimes when food is unsafe he throws it away, however he has been eating 100% melas here- stated he trusted me because I am a female. Pt stated he prefers to eat in his room by himself but will try to hang out in the community room when he is done , tried to encourage patient to interact with others and walk around. Anthropometrics HT: 510 WT: 223 LB (101 kg) ABW: 180 LB (81.93 kg) BMI: 32.01 (Obese, class I) GI/ Skin Integrity GI: WNL, Soft, Non-tender, Large BM: 5/7 x1 I/O: 920/Not Noted Skin: WNL, dryness Jordan: 19 Diet Order: CCHO, RUPERT Estimated Energy Needs: (Obese , ABW) 9097-0646 kcals (20-25 kcals/ kg) 65-80g Pro (0.8-1.0 g/kg) 2487-7074 ml (20-25 ml/kg) Current Diet Order/ Nutrition Support [facility], [facility] Pertinent Medications Maalox (PRN), Lipitor, Glutose 40% (PRN), Ferrous Sulfate, Glucagen (PRN), Hydrochlorothiazide, INS-SS, Synthroid, Cozaar, MOM (PRN), Flomax Pertinent Labs POC Glucose (last 24 hours): 73, 98, 71 Glucose 110, GFR 77, T Protein 6.2, Albumin 3.2, HDL 28 Nutritional Hx/Data Height 1.78 m Height (Calculated Centimeters) 177.8 Current Weight (lbs) 101.151 kg Weight (Calculated Kilograms) 101.2 Weight (Calculated Grams) 436516.1 [place] Body Weight 166 LB (75.45 kg) % [place] Body Weight 134 Body Mass Index (BMI) 32.0 Weight Status Obese GI Symptoms Last BM 09/19 x1 Skin Integrity/Comment: Skin: WNL, dryness Jordan: 19 Current %PO Good (75-100%) Estimated Nutritional Goals BEE in Kcals: Adj wt of IBW Calories/Kcals/Kg 20-25 Kcals Calculated 1901-8883 Protein: Adj wt of IBW Protein g/k.8-1.0 Protein Calculated 65-80 Fluid: ml 7631-1199 ml (20-25 ml/kg) Nutritional Problem 1. Problem Problem Obesity Etiology r/t consistent energy overconsumption Signs/Symptoms: aeb BMI >30 (32.01). Malnutrition Related to Morbid Obesity Malnutrition related to morbid obesity No Intervention/Recommendation Comments Continue [facility], [facility] diet as tolerated. Expected Outcomes/Goals Expected Outcomes/Goals 1.PO intake to continue to meet >75% of estimated nutritional needs. 2.Monitor PO intake, wt, nutrition related labs, and skin integrity. 3.Gradual weight loss (0.5-1.0 LB/week) trending toward IBW preferred. 4.F/U as low risk in 7-10 days , 09/27-09/30.
--- NOTE | 2019-10-09 16:42 | Progress Notes ---
DATE: SUBJECTIVE: The patient seen, chart reviewed, discussed with staff. The patient is currently in the unit, still remains mostly withdrawn, keeps to self, minimally interactive. We are attempting to help him with a safe disposition plan. The patient unable to tend to his basic needs, concerns really for his ability to care for his basic needs. We are actively trying to get him into a more structured type of setting. Fair sleep and appetite, is needing prompting for ADLs, prompting to eat. Sleeping fairly well. ASSESSMENT: The patient remains symptomatic, still depressed, withdrawn, impoverished on exam, does not say too much to me today. Mood "okay." Still needing a high level of prompting, redirection, concerns for grave disability. PLAN: We will coordinate care with well services operator to work on a safe disposition plan. We will continue inpatient monitoring. JOB# [id number]
[2019-10-09] MEDS: Atorvastatin Calcium 10 MG TAB PO SCH (20:44)
[2019-10-10] MEDS: Levothyroxine 0.05 Mg Tab PO SCH (06:44)
[2019-10-10] MEDS: Benztropine 1 MG TAB PO SCH ×2 (08:40→17:07)
[2019-10-10] MEDS: Ferrous Sulfate 325 MG TAB PO SCH (08:42)
[2019-10-10] MEDS: OLANZapine 5 mg Oral Disintegrating Tab PO SCH ×2 (08:42→17:08)
--- NOTE | 2019-10-10 15:32 | Progress Notes ---
DATE: 10/10/2019 SUBJECTIVE: A 59-year-old male in the dayroom. Poor orientation. Mood "okay." No agitation, no escalation of behaviors, slept about 6-1/2 hours. No agitation and preoccupied, still mumbling to self, ongoing concerns for his ability to really attend to his basic needs. He has got nowhere to go right now, we are trying to get him to a jail but due COVID-19 there is significant delays and he cannot take care of his basic needs. Medications were reviewed. Labs reviewed. Vitals were reviewed. ASSESSMENT: A 59-year-old male with ongoing symptoms, safety concerns. PLAN: We will continue dosing of Zyprexa. I spoke with social services technician at length. JOB# [id number]
--- NOTE | 2019-10-11 12:50 | Discharge Summary ---
DATE OF DISCHARGE: 10/10/2019 HISTORY OF PRESENT ILLNESS: A 59-year-old male appearing bizarre, schizophrenia, intrusive, not making much sense, making some nonsensical comments, agitated, aggressive, escalating, could not be cared for at a lower level. PAST PSYCHIATRIC HISTORY: Schizophrenia. SOCIAL HISTORY: Noted. Coming from a [facility]. DIAGNOSIS: Schizophrenia. HOSPITAL COURSE: After initial assessment, the patient was started on medications. Medications were adjusted, titrated Zyprexa for example. Over the course of treatment, mood improved, affect improved, much calmer, more cooperative, any psychotic symptoms lessening, dissipating, decreasing. More sociable and engaged, sleeping well, eating well. Staff noting more redirectable. No aggressive behaviors. CONDITION UPON DISCHARGE: Improved, more engaged, linear. No SI, no HI, no intent, no plan. No overt psychotic symptoms, calmer on exam, friendlier on exam, more sociable on exam. Better impulse control. DIAGNOSIS: Schizophrenia upon discharge. MEDICAL: Please see full H and P. PROGNOSIS: The patient follows up at [facility] and continues to take his medications. Prognosis will improve, otherwise guarded. JOB# [id number]
== END 2019-10-10 17:55 | DRG 885 ==
LOC: GERO 20:45
PROVIDERS: ADMIT Psychiatry & Neurology Psychiatry; ATTEND Psychiatry & Neurology Psychiatry
DX: F25.9 Schizoaffective disorder, unspecified (principal); I10 Essential (primary) hypertension; E11.9 Type 2 diabetes mellitus without complications; N40.0 Benign prostatic hyperplasia without lower urinary tract symptoms; F03.90 Unspecified dementia, unspecified severity, without behavioral disturbance, psychotic disturbance, mood disturbance, and anxiety; Z79.899 Other long term (current) drug therapy; Z79.84 Long term (current) use of oral hypoglycemic drugs
CPT/HCPCS: 82948-90; 83036-90; G0410; Z7610